=== PATIENT | female | born 1970 | race Caucasian/White ===

== ENCOUNTER → 2018-03-23 14:36 | Outpatient (CLI) | payer OTHER, SELFPAY ==
--- NOTE | 2018-03-23 11:30 | EMB_PTH ---
PATIENT: INGRID VIERA LOC: [facility] U#:[id number] AGE/SX: 54/F ROOM: RE03/23/[address]: Dr. Savage Anderson MD : 1970 BED: DIS: SPEC #: [id number] RECD: 03/23/18 14:11 STATUS: CYDNEY LUIS F #: [id number] VISHAL: 03/23/18 11:[address]: Savage Anderson DEPT: SURGICAL PATHOLOGY RECD BY: Renuka Walker ENTERED: 03/23/18 15:33 SP TYPE: ENDOM BX/C TAMAR DR: Dr. Bharati Fisher MD Tissues: Endometrium, NOS Procedures: Surgery Specimen Level IV HEADER OPERATION: Endometrial biopsy PRE-OP DIAGNOSIS: N93.9 TISSUE SUBMITTED: Endometrial biopsy MICROSCOPIC DIAGNOSIS Endometrium, biopsy: Mildly disordered proliferative endometrium. AM:rell 03/24/18 MICROSCOPIC DESCRIPTION Slides are reviewed. GROSS DESCRIPTION Received in fixative is one container labeled with the patient's name and designated EM biopsy. The specimen consists of multiple irregular fragments of pink-red soft tissue that in aggregate measure 3 x 2.5 x 0.2 cm. The entire specimen is submitted in one cassette. / SJ:rell 03/23/18 TC:5 CPT: 43043
[2018-03-31 10:01] LABS: HPV APTIMA, High Risk Negative (Negative); HPV Reflexed? YES, CHARGE PATIENT
== END ==
PROVIDERS: Visit Provider Obstetrics & Gynecology
DX: N89.8 Other specified noninflammatory disorders of vagina (principal); N93.9 Abnormal uterine and vaginal bleeding, unspecified; Z12.4 Encounter for screening for malignant neoplasm of cervix
CPT/HCPCS: 87624; 88175; 88305; G0145

== ENCOUNTER → 2019-06-07 15:01 | Outpatient (CLI) | payer OTHER, SELFPAY ==
[2019-06-15 16:52] LABS: HPV APTIMA, High Risk Negative (Negative); HPV Reflexed? YES, CHARGE PATIENT
== END ==
PROVIDERS: Referring Provider Obstetrics & Gynecology; Visit Provider Obstetrics & Gynecology
DX: Z12.4 Encounter for screening for malignant neoplasm of cervix (principal)
CPT/HCPCS: 87624; 88175; G0145

== ENCOUNTER 2020-05-30 10:41 | Emergency (ER) | payer OTHER, SELFPAY ==
[2020-05-30 10:42] VITALS: BP 151/87; PULSE 96; RESP 19; TEMP 36.5; O2SAT 96; BMI 37.9
--- NOTE | 2020-05-30 11:02 | CT_ITS ---
STUDY: CTA CHEST REASON FOR EXAM: Female, 49 years old. PE,CHEST PAIN, SOB ON EXCERTION, DVT RADIATION DOSAGE (If Supplied By Facility): CTDIvol = ( 12.48 ) mGy, DLP = ( 462.59 ) mGycm TECHNIQUE: The examination was performed with the intravenous administration of IV 100mL Isovue-370. Post-processing of the angiographic images was performed, with multiplanar reformation and 3D reconstruction. Individualized dose optimization techniques were used for this CT. COMPARISON: None. FINDINGS: Normal enhancement of the main pulmonary artery and right and left pulmonary arteries. Normal enhancement of the bilateral peripheral pulmonary arteries. There is no demonstrated pulmonary embolism. Normal thoracic aorta and visualized great vessels. There is no demonstrated aortic dissection. Normal heart and pericardium. Normal mediastinum. Normal hilar regions. Normal visualized trachea and bronchi. The lungs are well expanded. 51.8 cm x 1.4 cm irregular nodular density along the peripheral posterior aspect of the right upper lobe. An irregular nodular density measuring 1.2 cm x 1.1 cm is also seen along the lateral aspect of the posterior left upper lobe. This also evidence of a nondiscrete infiltrates in both lower lobes. Findings are suggestive of a patchy bilateral pulmonary infiltrates. Radiographic follow-up is recommended. Normal pleura. Normal chest wall structures. Normal osseous structures. Normal visualized upper abdomen. CT/CTA Chest W/WO Contrast IMPRESSION: There is no evidence of a pulmonary embolism. Patchy infiltrates in both lungs as described above. This most likely represents pneumonic in nature. Radiographic follow-up is recommended. Electronically Signed: Quang Garner, at 13:11 EDT , Service support ,
--- NOTE | 2020-05-30 11:03 | EKG12_ITS ---
Test Reason : Blood Pressure : / mmHG Vent. Rate : 083 BPM Atrial Rate : 083 BPM P-R Int : 156 ms QRS Dur : 080 ms QT Int : 370 ms P-R-T Axes : 024 032 009 degrees QTc Int : 434 ms Normal sinus rhythm Normal ECG Confirmed by SAI GR, TANYA ([id number]), editor at large ANGIE SY ([id number]) on 06/03/2020 11:13:01 AM Referred By: MILA Confirmed By:TANYA GIBBS MD
--- NOTE | 2020-05-30 11:25 | ED.VIS.GEN ---
History of Present Illness Informant: Patient Onset: Weeks Narrative: 49-year-old female past medical history of asthma presents with complaints of dyspnea on exertion and leg pain. At the beginning of May she was positive for Covid 19. She states her symptoms improved except she still has dyspnea on exertion since her diagnosis. On 05/26/2020 she was diagnosed with left lower extremity DVT and started on Xarelto. That night she started having worsening leg pain up into her left thigh which has been persistent. Over the last few days she has midsternal chest tightness when taking deep breaths. Her PCP sent her to the ED to get a CTA. Patient denies chest pain now. She states her dyspnea on exertion is no worse than it has been over the last several weeks but it concerned her that it is not gone. She no longer has a fever or cough. No leg swelling or discoloration. <Katerine Carney - Last Filed: 05/30/20 13:17> <Lenin Tee - Last Filed: 05/30/20 14:39> Chief Complaint: Shortness of Breath Past Medical History Past Medical History: - - asthma, DVT <Katerine Carney - Last Filed: 05/30/20 13:17> <Lenin Tee - Last Filed: 05/30/20 14:39> - Allergies and Home Meds Allergies/Adverse Reactions: Allergies No Known Allergies Allergy (Verified 05/30/20 10:41) Primary Care Physician: Skye Garcia DO [Primary Care Provider] - Review of Systems General: Denies: Chills, Fever, Sweats Eyes: Denies: Visual changes - bilaterally, Diplopia ENT: Denies: Rhinorrhea, Sore throat Cardiovascular: Denies: Chest pain, Palpitations Respiratory: Reports: Dyspnea on exertion. Denies: Dyspnea, Cough, Sputum, Orthopnea Gastrointestinal: Denies: Abdominal pain, Nausea, Vomiting, Diarrhea, Melena, Hematochezia Genitourinary: Denies: Dysuria, Hematuria, Frequency Musculoskeletal: Reports: Extremity Pain. Denies: Back pain Skin: Denies: Rash, Wounds Neurological: Denies: Headache, Weakness, Numbness <Katerine Carney - Last Filed: 05/30/20 13:17> Physical Exam Vital Signs/Narrative: Vital Signs Temp Pulse Resp BP Pulse Ox 05/30/20 10:42 97.7 F L 96 19 H 151/87 H 96 General: Well nourished, Well developed, No Acute Distress Head: Normocephalic, Atraumatic Eyes: Perrl, EOMI ENT: Moist mucous membranes, No rhinorrhea Neck: Supple, Nontender Cardiovascular: Regular rate, Regular rhythm, No murmurs Respiratory: No distress, CTA bilaterally, Chest nontender Back: Normal Inspection Extremities: No edema, Calf Tenderness, - - left calf tenderness in area of known DVT. No LE swelling. 2+ distal pulses Skin: Normal color, No rash Neurological: Alert, Oriented x3, Cranial nerves II-XII grossly intact Psychological: Normal affect, Normal Mood <Katerine Carney - Last Filed: 05/30/20 13:17> Vital Signs/Narrative: Vital Signs Temp Pulse Resp BP Pulse Ox 05/30/20 10:42 97.7 F L 96 19 H 151/87 H 96 <Lenin Tee - Last Filed: 05/30/20 14:39> Diagnostic/Tx/Re-eval Clinical Impression(s) from Imaging Studies Chest CTA 05/30/20 11:02 IMPRESSION: There is no evidence of a pulmonary embolism. Patchy infiltrates in both lungs as described above. This most likely represents pneumonic in nature. Radiographic follow-up is recommended. Electronically Signed: Quang Garner, at 13:11 EDT , Service support , Laboratory Data 05/30/20 05/30/20 11:25 11:25 WBC 6.5 RBC 3.96 L Hgb 13.1 Hct 38.4 MCV 97.0 MCH 33.1 H MCHC 34.1 RDW Std Deviation 46.7 H RDW Coeff of Ravinder 13.1 Plt Count 190 MPV 8.3 Immature Gran % (Auto) 0.300 Neut % (Auto) 72.4 H Lymph % (Auto) 19.0 [place] % (Auto) 7.3 Eos % (Auto) 0.8 Baso % (Auto) 0.2 Absolute Neuts (auto) 4.7 Absolute Lymphs (auto) 1.23 Nucleated RBC % 0 Sodium 139 Potassium 3.8 Chloride 106 Carbon Dioxide 25.0 Anion Gap 8 BUN 8 Creatinine 0.73 Estim Creat Clear Calc 90.65 Est GFR (MDRD) Af Amer 108 Est GFR (MDRD) Non-Af 89 BUN/Creatinine Ratio 10.9 Glucose 101 Calcium 9.2 Troponin I < 0.015 - Rhythm Strip Rhythm Strip: Sinus Rhythm Rate: 83 Ectopy: None - Medical Decision Making Patient presented with dyspnea on exertion x1 months after diagnosis of COVID and worsening LLE pain after being diagnosed with DVT 1 week ago. She appears well and nontoxic. She is resting comfortably in no respiratory distress. Vital signs within normal limits. Normal cardiopulmonary exam. LLE calf is tender with palpable cord over area of known DVT. Labs are unremarkable. Troponin negative. EKG is normal sinus rhythm with no signs of ischemia. CTA was negative for PE but did show patchy infiltrates. This is most likely post Covid pneumonia. She be treated with doxycycline and follow-up with PCP. Return for worsening shortness of breath. She was agreeable and discharged home in stable condition. <Katerine Carney - Last Filed: 05/30/20 13:17> - Medical Decision Making The pen history and physical was obtained. Patient has a DVT left lower extremity and is on Xarelto. She states she is compliant. She presents because of increased shortness of breath. She denies hemoptysis. She was diagnosed earlier this month with COVID-19. Patient is tachypneic. She is not febrile nor is she hypoxic. Lungs reveal some scattered rales bilaterally. Heart is regular. Lower extremity reveals swelling and slight discoloration of left lower extremity consistent with DVT. Appropriate blood work obtained and CTA to evaluate for pulmonary embolus. <Lenin Tee - Last Filed: 05/30/20 14:39> ED Disposition <Katerine Carney - Last Filed: 05/30/20 13:17> <Lenin Tee - Last Filed: 05/30/20 14:39> - Plan for ED Patient: Disposition: Home or Assisted Living Diagnosis: Pneumonia due to COVID-19 virus, Bilateral patchy infiltrates, Dyspnea, Dyspnea due to COVID-19 Instructions: ED Upper Resp Infec Abx Tx Prescriptions: Doxycycline 100 mg PO BID #20 cap Prescription Printed Referrals: Skye Garcia DO [Primary Care Provider] -
[2020-05-30 11:41] LABS: Absolute Lymphocyte Count 1.23 X10^3/uL (0.83-4.51); Absolute Neutrophil Count 4.7 X10^3/uL (2.0-7.7); Basophil# 0.01 X10^3/uL; Basophil% 0.2 % (0-1); Eosinophil# 0.05 X10^3/uL; Eosinophils% 0.8 % (0-5); Hematocrit 38.4 % (37-47); Hemoglobin 13.1 g/dL (12.0-15.0); Lymphocyte # 1.23 X10^3/ul (4.0); Mean Corp Hgb Conc 34.1 g/dL (32-36); Mean Corpuscular Hgb 33.1 pg (27.0-32.0); Mean Platelet Vol. 8.3 fl (6.2-12.0); Monocyte# 0.47 X10^3/uL; Monocyte% 7.3 % (0-10); NRBC Flagged by Analyzer 0 % (0-5); Neutrophil % 72.4 % (47-70); Platelet Count 190 K/mm3 (150-450); RBC Distribution Width CV 13.1 % (11.6-14.6); RBC Distribution Width SD 46.7 fl (35.1-43.9); Red Blood Count 3.96 M/mm3 (4.2-5.4); White Blood Count 6.5 K/mm3 (4.4-11.0)
[2020-05-30 11:57] LABS: Anion Gap 8 (5-15); BUN 8 mg/dL (7-18); BUN/Creat Ratio 10.9 RATIO (10-20); Calcium,Total 9.2 mg/dL (8.5-10.1); Chloride 106 mmol/L (98-107); Creatinine, Serum 0.73 mg/dL (0.55-1.02); EST Glomerular Filtration Rate 89 mL/min (>60); Est Glom Filt Rate - Afr Amer 108 mL/min (>60); Estimated Creatinine Clearance 90.65 ml/min; Glucose 101 mg/dL (74-106); Potassium 3.8 mmol/L (3.5-5.1); Sodium Level 139 mmol/L (136-145)
[2020-05-30] MEDS: Doxycycline 100 MG CAPSULE PO (13:37)
[2020-05-30 13:39] VITALS: BP 107/71; PULSE 91; RESP 16; O2SAT 97
== END 2020-05-30 14:27 | disposition home or self-care (01) ==
LOC: ED 13:40
PROVIDERS: Emergency Provider Physician Assistant; PCP Internal Medicine
DX: U07.1 COVID-19 (principal); J12.89 Other viral pneumonia; J45.909 Unspecified asthma, uncomplicated; Z86.718 Personal history of other venous thrombosis and embolism; Z79.01 Long term (current) use of anticoagulants
CPT/HCPCS: 71275; 80048; 84484; 85025; 93005; 99284; Q9967

== ENCOUNTER → 2020-07-11 07:54 | Outpatient (CLI) | payer OTHER, SELFPAY ==
--- NOTE | 2020-07-11 07:56 | VDLE_ITS ---
Reason For Study: F/U DVT RIGHT LEFT GSV is normal. CFV is compressible, spontaneous, phasic, CFV is compressible, spontaneous, phasic, competent, and demonstrates normal competent and demonstrates normal augmentation. augmentation. FV is compressible, spontaneous, phasic, FV is compressible, spontaneous, phasic, competent and demonstrates normal competent and demonstrates normal augmentation. augmentation. POP V is compressible, spontaneous, phasic, POP V is compressible, spontaneous, phasic, competent and demonstrates normal competent and demonstrates normal augmentation. augmentation. T/P Trunk is compressible. T/P Trunk is compressible. PTV is compressible. PTV is compressible. LT PerV is compressible. RT PerV is compressible. Lt SoleusV is partially compressible with no flow Lt GSV was ablated three years ago Lt GSV at junction is partially compressible with bright intraluminal echoes consistent with chronic SVT Lt thigh and calf varicosities are partially compressible with bright intraluminal echoes consistent with chronic SVT. Interpretation Summary Acute deep vein thrombosis is noted in the left soleus vein. The remainder of the left lower extremity deep venous system is patent and compressible. Deep veins of the right lower extremity are patent and compressible segmentally. There is no evidence of right lower extremity deep vein thrombosis. Valvular competence appears intact within the proximal deep venous systems bilaterally. The right great saphenous vein appears patent and compressible segmentally. The left great saphenous vein has been previously ablated, though chronic changes are noted near the left sapheno-femoral junction. Chronic venous changes are noted in superficial varicosities in the left thigh and calf. Ordering Physician: Skye Garcia Referring Physician: Skye Garcia Performed By: Lashay Freeman, SIS, RVT
== END ==
PROVIDERS: PCP Internal Medicine; Referring Provider Internal Medicine; Visit Provider Internal Medicine
DX: I82.409 Acute embolism and thrombosis of unspecified deep veins of unspecified lower extremity (principal)
CPT/HCPCS: 93970

== ENCOUNTER → 2020-11-21 08:56 | Outpatient (CLI) | payer SELFPAY ==
--- NOTE | 2020-11-21 09:08 | VDLE_ITS ---
Reason For Study: DVT RIGHT LEFT CFV is compressible, spontaneous, phasic, GSV is normal. competent and demonstrates normal CFV is compressible, spontaneous, phasic, augmentation. competent, and demonstrates normal Procedure augmentation. This is a venous duplex using B-mode, color FV is compressible, spontaneous, phasic, flow and spectral Doppler. competent and demonstrates normal The study was technically difficult. augmentation. Due to body habitus. POP V is compressible, spontaneous, phasic, A preliminary report was called and/or faxed competent and demonstrates normal to Dr. Garcia @ [phone] @ 9:20 am. augmentation. T/P Trunk is compressible. PTV is compressible. LT PerV is compressible. VL/Venous Duplex US, Unilateral Interpretation Summary Deep veins of the left lower extremity are patent and compressible segmentally. There is no evidence of left lower extremity deep vein thrombosis. Valvular competence appears intac t within the proximal deep venous system on the left . The left great saphenous vein appears patent a nd compressible segmentally. Ordering Physician: Skye Garcia Referring Physician: Skye Garcia Performed By: Maria Guadalupe Robles, COURTNEYCS, RVT
== END ==
PROVIDERS: PCP Internal Medicine; Referring Provider Internal Medicine; Visit Provider Internal Medicine
DX: I82.402 Acute embolism and thrombosis of unspecified deep veins of left lower extremity (principal)
CPT/HCPCS: 93971

== ENCOUNTER → 2021-07-23 | Outpatient (CLI) | payer SELFPAY ==
[2021-07-29 08:40] LABS: HPV Reflexed? NOT INDICATED
== END | disposition home or self-care (01) ==
LOC: LABSPEC 16:01
PROVIDERS: PCP Internal Medicine; Visit Provider Obstetrics & Gynecology
DX: Z12.4 Encounter for screening for malignant neoplasm of cervix (principal)
CPT/HCPCS: 88175; G0145

== ENCOUNTER → 2024-05-31 | Outpatient (CLI) | payer SELFPAY ==
[2024-05-31 18:01] LABS: Absolute Lymphocyte Count 2.08 X10^3/uL (0.83-4.51); Basophil# 0.03 X10^3/uL; Basophil% 0.5 % (0-1); Eosinophil# 0.08 X10^3/uL; Eosinophils% 1.2 % (0-5); Hematocrit 40.4 % (37-47); Lymphocyte # 2.08 X10^3/ul (0.83-4.51); Lymphocyte % 31.5 % (19-41); Mean Corp Hgb Conc 34.7 g/dL (32-36); Mean Corpuscular Hgb 34.7 pg (27.0-32.0); Mean Platelet Vol. 8.8 fl (6.2-12.0); Monocyte# 0.43 X10^3/uL; Monocyte% 6.5 % (0-10); NRBC Flagged by Analyzer 0 % (0-5); Neutrophil # 3.96 X10^3/uL (2.7-7.7); Platelet Count 160 K/mm3 (150-450); RBC Distribution Width CV 11.9 % (11.6-14.6); RBC Distribution Width SD 43.5 fl (35.1-43.9); Red Blood Count 4.04 M/mm3 (4.2-5.4); White Blood Count 6.6 K/mm3 (4.4-11.0)
[2024-05-31 18:12] LABS: ALB/GLOB Ratio 1.3 RATIO (0.9-2.4); AST(SGOT) 34 U/L (15-37); Alanine Aminotransfer ALT/SGPT 45 U/L (13-56); Albumin, Serum 4.2 g/dL (3.2-5.0); Alkaline Phosphatase 91 U/L (45-117); Amylase 21 U/L (25-115); Anion Gap 7 (5-15); BUN 12 mg/dL (7-18); BUN/Creat Ratio 14.6 RATIO (10-20); Calcium,Total 9.4 mg/dL (8.5-10.1); Chloride 105 mmol/L (98-107); Creatinine, Serum 0.82 mg/dL (0.55-1.02); EST Glomerular Filtration Rate 77 mL/min (>60); Est Glom Filt Rate - Afr Amer 93 mL/min (>60); Globulin 3.2 g/dL (2.2-4.2); Glucose 105 mg/dL (74-106); Lipase 30 U/L (13-75); Potassium 3.8 mmol/L (3.5-5.1); Protein, Total 7.4 g/dL (6.4-8.2); Sodium Level 140 mmol/L (136-145)
[2024-05-31 18:15] LABS: Erythrocyte Sedimentation Rate 5 mm/hr (0-30)
== END | disposition home or self-care (01) ==
PROVIDERS: PCP Internal Medicine; Referring Provider Internal Medicine; Visit Provider Internal Medicine
DX: R10.13 Epigastric pain (principal)
CPT/HCPCS: 36415; 80053; 82150; 83690; 85025; 85652; 86140

== ENCOUNTER 2024-06-19 13:14 | Emergency (ER) | payer OTHER, SELFPAY ==
[2024-06-19 13:15] VITALS: BP 160/94; PULSE 87; RESP 16; TEMP 36.1; O2SAT 98; BMI 38.8
--- NOTE | 2024-06-19 14:10 | US_ITS ---
STUDY: ULTRASOUND GALLBLADDER REASON FOR VISIT: Female, 53 years old. Pain TECHNIQUE: Ultrasound evaluation of the gallbladder was performed with real-time and static rowe-scale imaging. TECHNICAL QUALITY: Limited. Examination limited due to a combination of factors including obesity and bowel gas. COMPARISON: None. FINDINGS: Gallbladder: There is a markedly distended gallbladder. The gallbladder wall measures 2 mm. There is a negative sonographic Iraheta''s sign. There is no pericholecystic fluid. There are multiple echogenic structures within the gallbladder, consistent with multiple gallstones. Common Bile Duct (C.B.D.): The common bile duct measures 4 mm. US/Gallbladder IMPRESSION: Cholelithiasis. Negative Iraheta''s sign. No wall thickening. Electronically Signed: Smith Rodriguez MD at 16:56 EST ,
--- NOTE | 2024-06-19 14:10 | EKG12_ITS ---
Test Reason : Blood Pressure : */* mmHG Vent. Rate : 74 BPM Atrial Rate : 74 BPM P-R Int : 166 ms QRS Dur : 82 ms QT Int : 410 ms P-R-T Axes : 24 28 30 degrees QTcB Int : 455 ms Sinus rhythm with frequent Premature ventricular complexes Otherwise normal ECG Confirmed by SAI GR, TANYA ([id number]), brands editor SILVER ANDERSON ([id number]) on 06/20/2024 8:16:56 AM Referred By: Confirmed By: TANYA GIBBS MD
[2024-06-19 14:18] LABS: Absolute Lymphocyte Count 1.79 X10^3/uL (0.83-4.51); Basophil# 0.02 X10^3/uL; Basophil% 0.4 % (0-1); Eosinophil# 0.13 X10^3/uL; Eosinophils% 2.4 % (0-5); Hematocrit 42.6 % (37-47); Hemoglobin 15.1 g/dL (12.0-15.0); Lymphocyte # 1.79 X10^3/ul (0.83-4.51); Lymphocyte % 33.6 % (19-41); Mean Corp Hgb Conc 35.4 g/dL (32-36); Mean Corpuscular Volume 98.6 fL (81-99); Mean Platelet Vol. 9.3 fl (6.2-12.0); Monocyte# 0.36 X10^3/uL; Monocyte% 6.8 % (0-10); NRBC Flagged by Analyzer 0 % (0-5); Neutrophil % 56.4 % (47-70); Platelet Count 150 K/mm3 (150-450); RBC Distribution Width SD 43.7 fl (35.1-43.9); Red Blood Count 4.32 M/mm3 (4.2-5.4); White Blood Count 5.3 K/mm3 (4.4-11.0)
--- NOTE | 2024-06-19 14:20 | EDS_ITS ---
HPI History of Present Illness Chief Complaint: Abd Pain Narrative Narrative: Patient is a 53-year-old female with past medical history of asthma, blood clots who presents to the emergency department with a chief complaint of abdominal pain. Patient states that she is scheduled to have her gallbladder removed towards the end of this month in [place]. Said that she has had worsening pain starting on Tuesday she called her surgeon and they were unable to move her surgery up. She was told that if her pain worsens to go to the local emergency department which prompted her to come here for further evaluation management. [facility] Medical History History of blood clots Asthma Abscess of back Home Medications ?Medication ?Instructions ?Recorded ?Last Taken ?Type albuterol 90 mcg-budesonide 80 2 inh inhalation .prn 09/26/23 Unknown History mcg/actuation HFA aerosol inhaler dicyclomine 10 mg capsule 10 mg PO TID #30 caps 06/19/24 Unknown Rx omeprazole 40 mg capsule,delayed 40 mg PO DAILY 06/19/24 Unknown History release ondansetron 4 mg disintegrating 4 mg PO Q6H PRN nausea and 06/19/24 Unknown Rx tablet vomiting #20 tabs oxycodone-acetaminophen 5 mg-325 1 tab PO Q6H PRN pain 3 days #12 06/19/24 Unknown Rx mg tablet (Percocet) tabs Allergy/AdvReac Type Severity Reaction Status Date / Time No Known Allergies Allergy Verified 06/19/24 13:15 Family History Father Cancer Mother Cancer Osteoporosis Sister Hypertension Osteoporosis Surgical History History of excision of pilonidal cyst Social History Smoking Status: Never smoker alcohol intake: never substance use type: does not use ROS ROS ED ROS Narrative Constitutional: Denies any fevers, chills, headaches, lightness, dizziness Cardiovascular: Denies chest pain or palpitations Respiratory: Denies coughing wheezing shortness of breath Abdomen: Complains of abdominal pain as noted above and nausea denies vomiting or diarrhea : Denies any urinary symptoms Neurological: Denies numbness, weakness, tingling Musculoskeletal: Denies back pain Skin: Denies rashes or lesions EXAM Physical Exam Narrative Exam Narrative: General: Patient lying in bed rest comfortably did not appear to be in acute distress Head: Atraumatic, normocephalic Eyes: PERRL bilaterally, EOMI bilateral, no conjunctival injection noted Neck: Soft, supple, trach midline Cardiovascular: Regular rate and rhythm no murmurs gallops rubs noted Respiratory: Clear to auscultation bilaterally no rales rhonchi or wheezes noted Abdomen: Soft, nondistended, tenderness palpation the right upper quadrant positive Iraheta sign on exam, no rebound or guarding on exam Extremities: +5/5 strength noted in the bilateral upper and lower extremities, no pedal edema on exam, radial pulses +2/4 in the bilateral upper extremities Neurological: Patient following commands knew that she was at [facility] years 2023 Skin: Warm, dry, intact Const Vital Signs: 06/19/24 13:15 06/19/24 15:15 06/19/24 17:00 Temperature 96.9 F L Temperature Source Temporal Pulse Rate 87 69 65 Respiratory Rate 16 16 Blood Pressure 160/94 H 125/71 H 117/73 Blood Pressure Mean 116 89 87 Pulse Ox 98 98 Oxygen Delivery Method Room Air Room Air MDM MDM MDM Narrative Medical decision making narrative: patient is a 53-year-old female who presents to the emerged part with a chief complaint of right upper quadrant abdominal pain. Patient will have a workup performed here on the differential diagnose includes Melamin to cholecystitis, choledocholithiasis, pancreatitis. Once workup is obtained reviewed she will be reevaluated. Patient be given morphine Zofran. Patient's CBC reviewed and showed no evidence leukocytosis white blood count normal 5.3, hemoglobin 15.1, platelet count normal at 150. Patient sodium normal at 139, potassium normal 3.5, creatinine normal at 0.84. Patient's AST and ALT were normal at 30 and 45 respectively, total bilirubin normal at 0.90. Patient's urinalysis showed 500 leukocyte esterase 5-10 squamous epithelial cells with 25-50 white blood cells 2+ bacteria this will be sent for culture she does not have a urinary symptoms at this point time she was advised to follow-up on this with her primary care physician. Patient's ultrasound of her gallbladder was reviewed and showed cholelithiasis negative Iraheta sign no wall thickening noted. I did discuss results with the patient and she would like a second opinion and for me to discuss case with the on-call general surgeon here. I called and discussed case with Dr. Taylor who states that she does not need her gallbladder out at this point time and she should follow-up with the surgeon adult pop Cruz who is scheduled her to have her gallbladder removed on the of this month. I did advise her to return for a fever of 100.4 or greater persistent vomiting not keep anything down. She is requesting some pain medication which this will be sent to the pharmacy as well as nausea medication. She was encouraged to also follow-up with her primary care physician outpatient setting. She is agreeable with this plan as well as her significant other at bedside. All question concerns answered she is discharged home in stable condition. Lab Data Labs: Laboratory Results - last 24 hr 06/19/24 06/19/24 13:27 15:25 WBC 5.3 RBC 4.32 Hgb 15.1 H Hct 42.6 MCV 98.6 MCH 35.0 H MCHC 35.4 RDW Std Deviation 43.7 RDW Coeff of Ravinder 12.0 Plt Count 150 MPV 9.3 Immature Gran % (Auto) 0.400 Neut % (Auto) 56.4 Lymph % (Auto) 33.6 [place] % (Auto) 6.8 Eos % (Auto) 2.4 Baso % (Auto) 0.4 Absolute Neuts (auto) 3.0 Absolute Lymphs (auto) 1.79 Nucleated RBC % 0 Sodium 139 Potassium 3.5 Chloride 106 Carbon Dioxide 26.0 Anion Gap 7 BUN 6 L Creatinine 0.84 Estim Creat Clear Calc 100.17 Est GFR (MDRD) Af Amer 92 Est GFR (MDRD) Non-Af 76 BUN/Creatinine Ratio 7.2 L Glucose 107 H Calcium 9.7 Total Bilirubin 0.90 AST 30 ALT 45 Alkaline Phosphatase 93 Total Protein 7.7 Albumin 4.4 Globulin 3.3 Albumin/Globulin Ratio 1.3 Lipase 34 Urine Color Yellow Urine Clarity Clear Urine pH 6.0 Ur Specific Hollis 1.015 Urine Protein Negative Urine Glucose (UA) Normal Urine Ketones 15 H Urine Occult Blood 10 H Urine Nitrite Negative Urine Bilirubin Negative Urine Urobilinogen Normal Ur Leukocyte Esterase 500 H Urine RBC 0-5 SEEN Urine WBC 25-50 SEEN Ur Squamous Epith Cells 5-10 SEEN Ur Renal Epithelial Cell 5-10 SEEN Urine Bacteria 2+ Urine Mucus 0 SEEN Radiography Diagnostic Testing: Clinical Impression(s) from Imaging Studies Gallbladder Ultrasound 06/19/24 14:10 IMPRESSION: Cholelithiasis. Negative Iraheta''s sign. No wall thickening. Electronically Signed: Smith Rodriguez MD at 16:56 EST , Discharge Plan Triage Chief Complaint: Abd Pain ED Provider: Mat Zambrano Dx/Rx/DC Orders Clinical Impression: Abdominal pain, Cholelithiasis Prescriptions: New ondansetron 4 mg tablet,disintegrating 4 mg PO Q6H PRN (Reason: nausea and vomiting) Qty: 20 0RF oxycodone-acetaminophen [Percocet] 5-325 mg tablet 1 tab PO Q6H PRN (Reason: pain) 3 Days Qty: 12 0RF dicyclomine 10 mg capsule 10 mg PO TID Qty: 30 0RF No Action albuterol-budesonide 90-80 mcg/actuation HFA aerosol inhaler 2 inh inhalation .prn Rx Instructions: as a single dose; may repeat up to 6 doses per day (12 inhalations) omeprazole 40 mg capsule,delayed release(DR/EC) 40 mg PO DAILY Primary Care Provider: Skye Garcia Referrals: Skye Garcia DO [Primary Care Provider] - Activity Restrictions/Additional Instructions: Follow-up with your primary care physician on your urine culture results to ensure that you do not have a urinary tract infection. Take prescriptions as prescribed do not operate anything under the influence of these medications. Follow-up with your surgeon for your scheduled surgery. Return with fevers of 100.4 or greater, persistent vomiting not tolerating oral intake or any other concerns. Stick with a bland diet avoid fatty greasy foods Print Language: Kinyarwanda Disposition Disposition: Home, Self Care
[2024-06-19] MEDS: Morphine 4 MG/ML Syringe IV (14:26)
[2024-06-19] MEDS: Ondansetron 4 MG/2 ML Vial IV (14:26)
[2024-06-19 14:37] LABS: ALB/GLOB Ratio 1.3 RATIO (0.9-2.4); AST(SGOT) 30 U/L (15-37); Alanine Aminotransfer ALT/SGPT 45 U/L (13-56); Albumin, Serum 4.4 g/dL (3.2-5.0); Alkaline Phosphatase 93 U/L (45-117); Anion Gap 7 (5-15); BUN 6 mg/dL (7-18); BUN/Creat Ratio 7.2 RATIO (10-20); Calcium,Total 9.7 mg/dL (8.5-10.1); Chloride 106 mmol/L (98-107); Creatinine, Serum 0.84 mg/dL (0.55-1.02); EST Glomerular Filtration Rate 76 mL/min (>60); Est Glom Filt Rate - Afr Amer 92 mL/min (>60); Estimated Creatinine Clearance 100.17 ml/min; Globulin 3.3 g/dL (2.2-4.2); Glucose 107 mg/dL (74-106); Lipase 34 U/L (13-75); Potassium 3.5 mmol/L (3.5-5.1); Protein, Total 7.7 g/dL (6.4-8.2); Sodium Level 139 mmol/L (136-145)
[2024-06-19 15:15] VITALS: BP 125/71; PULSE 69
[2024-06-19 15:29] LABS: Mucous, Urine 0 SEEN /hpf (<or=2+)
[2024-06-19 15:39] LABS: Color, Urine Yellow (Yellow); Glucose, Dipstick Normal (Normal); Ketone-Dipstick 15 mg/dl (Negative); Leukocyte Esterase-Dipstick 500 /ul (Negative); Nitrite-Dipstick Negative (Negative); Occult Blood-Urine 10 /ul (Negative); Protein-Dipstick Negative (Negative); Specific Gravity, Urine 1.015 (1.002-1.030); Urine Bilirubin Dipstick Negative (Negative); Urine Clarity Clear (Clear); Urine Urobilinogen Normal (Normal)
[2024-06-19 16:55] LABS: Bacteria 2+ /hpf (None Seen); Renal Epithelial Cells 5-10 SEEN /hpf (0-5); Squamous Epithelial Cells - UA 5-10 SEEN /hpf (5-10); White Blood Cells 25-50 SEEN /hpf (0-5)
[2024-06-19 16:56] LABS: Red Blood Cells-Urine 0-5 SEEN /hpf (0-5)
[2024-06-19 17:00] VITALS: BP 117/73; PULSE 65; RESP 16; O2SAT 98
[2024-06-19] MEDS: HYDROcodone Bitartrate/Apap 5/325 Tablet PO (17:49)
[2024-06-19 18:31] VITALS: BP 134/61; PULSE 86; RESP 16; TEMP 36.6; O2SAT 99
== END 2024-06-19 18:37 | disposition home or self-care (01) ==
PROVIDERS: Emergency Provider Emergency Medicine; PCP Internal Medicine; Visit Provider Emergency Medicine
DX: R10.9 Unspecified abdominal pain (principal); K80.20 Calculus of gallbladder without cholecystitis without obstruction
CPT/HCPCS: 76705; 80053; 81001; 83690; 85025; 87086; 87088; 93005; 96374; 96375; 99283; A4216; J2405

== ENCOUNTER → 2025-07-15 | Outpatient (CLI) | payer OTHER, SELFPAY | END | disposition home or self-care (01) | PROVIDERS: PCP Internal Medicine; Referring Provider Physician Assistant; Visit Provider Physician Assistant | DX: L02.212 Cutaneous abscess of back [any part, except buttock and flank] (principal) | CPT/HCPCS: 87070; 87075; 87077; 87205 ==

== ENCOUNTER → 2025-07-18 | Outpatient (CLI) | payer SELFPAY, OTHER ==
--- NOTE | 2025-07-18 10:47 | VDLE_ITS ---
Reason For Study Reason For Study: F/U on known clots RIGHT LEFT GSV is normal. CFV is compressible, spontaneous, phasic, competent, CFV is compressible, spontaneous, phasic, competent and demonstrates normal augmentation. and demonstrates normal augmentation. FV is compressible, spontaneous, phasic, competent FV is compressible, spontaneous, phasic, competent and demonstrates normal augmentation. and demonstrates normal augmentation. POP V is compressible, spontaneous, phasic, competent POP V is compressible, spontaneous, phasic, competent and demonstrates normal augmentation. and demonstrates normal augmentation. T/P Trunk is compressible. T/P Trunk is compressible. PTV is compressible. PTV is compressible. LT PerV is compressible. RT PerV is compressible. GSV is absent. Procedure Varicose veins throughout leg are partially This is a venous duplex using B-mode, color flow and compressible with bright intraluminal echoes spectral Doppler. consistent with chronic SVT. Exam performed in department. No recent previous exam to compare to. VL/Venous Duplex US - Laith Extrem Interpretation Summary Deep veins of the bilateral lower extremities are patent and compressible segme ntally. There is no evidence of bilateral lower extremity deep vein thrombosis. The right great saphenous vein appears pa tent and compressible segmentally. Chronic post thrombotic changes noted in left lower extremity varicose veins. Ordering Physician: Skye Garcia Referring Physician: Skye Garcia Performed By: Mary Muniz RVT
--- OUTSIDE RECORDS SUMMARY | 2025-07-18 12:37 | XMS RPT_ITS | CCD ---
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 PELVIC ORGANS: Tubal ligation clips are present. No visible mass. Pelvic organs appropriate for patient age. BONES: Normal. No bony lesion or fracture. LUNG BASES: Normal. No visible pulmonary or pleural disease. OTHER: Negative. Continued Report - Page 2 of 2 Patient: INGRID VIERA Phone#: : 1970 Age: 54 Gender: F Pt. Type: Out Account: [id number] Location: 052 Ordering: KALEY HERNANDEZ Exam Date: 08/09/2024/17:27 Family Phys: Charge Code: [id number] Physician: Rock Order #: [id number] Dose#: 40.4 mGy CONCLUSION: 1. There is no evidence of acute abdominal or pelvic abnormality. Dictated by: Pool Amaro MD on 08/09/2024 at 17:58 Approved by: Pool Amaro MD on 08/09/2024 at 18:04 Normal [facility] LIPASEon 08-09-2024 Lipase [Catalytic activity/Vol] 44.0 U/L Normal 15.0 - 78.0 [facility] Comment on above: Result Comment: *PLE ASE NOTE THAT RANGES FOR LIPASE HAVE CHANGED OF 07/29/23 DUE TO AN ASSAY UPDATE BY THE SAMPLE CASE PORTER.THE NEW ASSAY RANGE IS 6-250 U/L, WITH A REFERENCE RANGE OF 16-77 U/L. Performed By: #### 2 [id number] #### [facility],[address] [place] [address] CV VENOUS BILATERAL LOWERon 07-31-2024 CV VENOUS BILATERAL LOWER [place] [address] Patient: INGRID VIERA Phone#: : 1970 Age: 54 Gender: F Pt. Type: Out Account: [id number] Location: [facility] Ordering: SKYE POON Exam Date: 07/31/2024/9:02 Family Phys: Charge Code: [id number] Physician: Rock Order #: [id number] Dose#: PROCEDURE: VENOUS DOPPLER BILAT LEG COMPARISON: [facility], , VENOUS DOPPLER BILAT LEG, 07/03/2024, 13:57. INDICATIONS: pain, swelling, FOLLOW UP SVT TECHNIQUE: Color duplex Doppler ultrasound evaluation analysis was performed in the usual manner. BOTTOM TURNER: BOB VIERA T [facility] RISK FACTORS FOR VENOUS DISEASE: Previous DVT or SVT EXAMINATION: RIGHT +Present -Reduced o Absent LEFT SPONT PHASIC AUG REFLUX COMP SPONT PHASIC AUG REFLUX COMP + + + o + CFV + + + o + + SFJ + + + + o + FV (prox) + + + o + + FV (mid) + + FV (dist) + + + + o + POP V + + + o + + + + o + T/P TRUNK + + + o + + + + o + PTV + + + o + + + + o + PERONEAL V + + + o + + GSV o GASTROC SOLEAL V BOTTOM TURNER'S NOTES: Left GSV is dilated and noncompressible. Starts mid thigh area. FINDINGS: THROMBI: Low-level echogenic material is present in the left greater saphenous vein. Remaining superficial and deep veins are patent. Continued Report - Page 2 of 2 Patient: INGRID VIERA Phone#: : 1970 Age: 54 Gender: F Pt. Type: Out Account: [id number] Location: 052 Ordering: SKYE POON Exam Date: 07/31/2024/9:02 Family Phys: Charge Code: [id number] Physician: Rock Order #: [id number] Dose#: COMPRESSIBILITY: The left greater saphenous vein is noncompressible from the mid thigh level distally. OTHER: Negative. CONCLUSION: 1. Findings consistent with superficial vein thrombus involving the left greater saphenous vein without significant change since prior exam. 2. Remaining superficial and deep veins are patent. Dictated by: Pool Amaro MD on 07/31/2024 at 10:10 Approved by: Pool Amaro MD on 07/31/2024 at 10:15 Normal [facility] CV VENOUS BILATERAL [facility] 07-03-2024 CV VENOUS BILATERAL [place] [address] Patient: INGRID VIERA Phone#: : 1970 Age: 53 Gender: F Pt. Type: Out Account: [id number] Location: 052 Ordering: KALEY HERNANDEZ Exam Date: 07/03/2024/13:57 Family Phys: Charge Code: [id number] Physician: Rock Order #: [id number] Dose#: PROCEDURE: VENOUS DOPPLER BILAT LEG COMPARISON: None. INDICATIONS: PAIN, SWELLING, s/p surgery TECHNIQUE: Color duplex Doppler ultrasound evaluation analysis was performed in the usual manner. BOTTOM TURNER: BOB VIERA [facility] RISK FACTORS FOR VENOUS DISEASE: Previous DVT or SVT Recent surgery S/P LAP MARGA EXAMINATION: RIGHT +Present -Reduced o Absent LEFT SPONT PHASIC AUG REFLUX COMP SPONT PHASIC AUG REFLUX COMP + + + o + CFV + + + o + + SFJ + + + + o + FV (prox) + + + o + + FV (mid) + + FV (dist) + + + + o + POP V + + + o + + + + o + T/P TRUNK + + + o + + + + o + PTV + + + o + + + + o + PERONEAL V + + + o + + GSV o GASTROC SOLEAL V BOTTOM TURNER'S NOTES: FINDINGS: Continued Report - Page 2 of 2 Patient: INGRID VIERA Phone#: : 1970 Age: 53 Gender: F Pt. Type: Out Account: [id number] Location: 052 Ordering: KALEY HERNANDEZ Exam Date: 07/03/2024/13:57 Family Phys: Charge Code: 161076 Physician: Rock Order #: [id number] Dose#: THROMBI: Deep veins are compressible. Left greater saphenous vein contains echogenic thrombus. COMPRESSIBILITY: Deep veins are compressible. Left greater saphenous vein is noncompressible. OTHER: Negative. CONCLUSION: 1. No deep vein thrombi 2. Superficial vein thrombus in the left greater saphenous vein. Dictated by: Whit Green MD on 07/03/2024 at 15:00 Approved by: Whit Green MD on 07/03/2024 at 15:06 Normal [facility] Final Surgical Pathology Rep [facility] 07-03-2024 Final Surgical Pathology Report . Pathology Reports Accession: Collected Date/Time: Received Date/Time: Pathologist: [id number] 06/27/2024 14:59 EST 07/02/2024 08:02 EST RUDY VENTURA MD Final Surgical Pathology Report DIAGNOSIS: GALLBLADDER: - MUCOSAL NECROSIS AND CHOLELITHIASIS, WITH MINIMAL INFLAMMATION COMMENT: [facility]#[id number] CLINICAL INFORMATION: BILIARY COLIC SPECIMEN: A GALLBLADDER GROSS DESCRIPTION: All parts labelled with patient name and [id number] Received in formalin labelled gallbladder Dimensions - 7.9 x 4.4 x 1.4 cm Cystic duct/pericystic duct lymph node - no lymph node identified Serosal surface - is slimy and mahoney-green with a roughened hepatic bed and attached yellow adipose tissue Luminal contents - contains dark green bile and multiple dark brown stones ranging in size from 0.3 to 0.5 cm. Mucosal surface - is velvety dark green with yellow flecks Wall thickness - 0.1 to 0.3 cm RS-1 Fina Berkowitz, [employer] Equipment Installer/ Dr. Rudy Ventura, Pathologist Performed by Fina Berkowitz MICROSCOPIC DESCRIPTION: The microscopic examination is performed, except in the case of Gross Only. Electronically Signed by Pathology Report verified by [facility] RUDY VENTURA Sign out Date: 07/03/2024 12:48 Performing Lab: [facility], [address] [place] [address] Pathology Dept Disclaimer If ancillary studies were utilized, the following Laboratory Developed Test (LDT) disclaimer will apply: Under CLIA requirements, [facility] Pathology Laboratory is qualified to perform high complexity testing. For all ancillary stains, positive and negative controls stain appropriately. Performance characteristics of immunohistochemical and chromogenic in-situ hybridization tests have been determined by [facility] Pathology Laboratory. These tests are used for clinical purposes, They should not be regarded as investigational or for research. Normal [facility] Urine Cultureon 06-21-2024 U[facility] Mixed Gram Positive Organisms [place] Count 11,000-25,000 MIXC Mixed contaminants. Submit a new specimen if indicated. Normal [facility] Comment on above: Performed By: #### M 100.2200 #### [facility] Laboratory [address] [facility] [place], [address] 12 Lead EKGon 06-19-2024 12 Lead EKG [facility] Cardiovascular Services [address] [place] [address] 12 Lead EKG 06/19/24 1453 MR#: [id number] Acct: [id number] Name: INGRID VIERA Cira Rep #: [id number] : 1970 53 From: River Dior MD Attending Dr: Status: DEP ER Ordering Dr: Mat Zambrano DO Date: 06/19/24 Location: ED Sex: F C Admitted: Test Reason : Blood Pressure : */* mmHG Vent. Rate : 74 BPM Atrial Rate : 74 BPM P-R Int : 166 ms QRS Dur : 82 ms QT Int : 410 ms P-R-T Axes : 24 28 30 degrees QTcB Int : 455 ms Sinus rhythm with frequent Premature ventricular complexes Otherwise normal ECG Confirmed by RIVER DIOR MD ([id number]), technical writer and editor SILVER ANDERSON ([id number]) on 06/20/2024 8:16:56 AM Referred By: Confirmed By: RIVER DIOR MD 06/20/24 0816 Date River Dior MD CC: Dr. Skye Poon, ; Dr. Mat Zambrano DO Signed Normal [facility] CBC W/Diff, Automatedon 06-01 Absolute Lymph 1.79 X10 3/uL Normal 0.83-4.51 [facility] Comment on above: Performed By: #### L 500.4050, L100.0100, L501.2450 ####[facility] [address] [place], [address] Absolute Neut 3.0 X10 3/uL Normal 2.0-7.7 [facility] Comment on above: Performed By: #### L 500.4050, L100.0100, L501.2450 ####[facility] [address] [place], [address] Basophils/100 WBC (Bld) 0.4 % Normal 0-1 [facility] Comment on above: Performed By: #### L 500.4050, L100.0100, L501.2450 ####[facility] [address] [place], [address] Eosinophils/100 WBC (Bld) 2.4 % Normal 0-5 [facility] Comment on above: Performed By: #### L 500.4050, L100.0100, L501.2450 ####[facility] [address] [place], [address] Erythrocyte distribution width (RBC) [Ratio] 12.0 % Normal 11.6-14.6 [facility] Comment on above: Performed By: #### L 500.4050, L100.0100, L501.2450 ####[facility] [address] [place], [address] Hematocrit (Bld) [Volume fraction] 42.6 % Normal 37-[address] [facility] Comment on above: Performed By: #### L 500.4050, L100.0100, L501.2450 ####[facility] [address] [place], [address] Hemoglobin (Bld) [Mass/Vol] 15.1 g/dL High 12.0-15.0 [facility] Comment on above: Performed By: #### L 500.4050, L100.0100, L501.2450 ####[facility] [address] [place], [address] IG% 0.400 Normal 0.0-0.[address] [facility] Comment on above: Result Comment: IG% - Immature Granulocytes (promyelocytes, myelocytes and metamyelocytes) > 1% indicates that a LEFT SHIFT is Present. Performed By: #### L 500.4050, L100.0100, L501.2450 ####[facility] [address] [place], [address] Lymphocytes/100 WBC (Bld) 33.6 % Normal 19-41 [facility] Comment on above: Performed By: #### L 500.4050, L100.0100, L501.2450 ####[facility] [address] [place], [address] MCH (RBC) [Entitic mass] 35.0 pg High 27.0-32.0 [facility] Comment on above: Performed By: #### L 500.4050, L100.0100, L501.2450 ####[facility] [address] [place], [address] MCHC (RBC) [Mass/Vol] 35.4 g/dL Normal 32-36 [facility] Comment on above: Performed By: #### L 500.4050, L100.0100, L501.2450 ####[facility] [address] [place], [address] MCV (RBC) [Entitic vol] 98.6 fL Normal 81-99 [facility] Comment on above: Performed By: #### L 500.4050, L100.0100, L501.2450 ####[facility] [address] [place], [address] Monocytes/100 WBC (Bld) 6.8 % Normal 0-10 [facility] Comment on above: Performed By: #### L 500.4050, L100.0100, L501.2450 ####[facility] [address] [place], [address] Neutrophils/100 WBC (Bld) 56.4 % Normal 47-70 [facility] Comment on above: Performed By: #### L 500.4050, L100.0100, L501.2450 ####[facility] [address] [place], [address] Nucleated RBC (Bld) [#/Vol] 0 10*3/uL Normal 0-5 [facility] Comment on above: Performed By: #### L 500.4050, L100.0100, L501.2450 ####[facility] [address] [place], [address] Platelet mean volume (Bld) [Entitic vol] 9.3 fL Normal 6.2-12.0 [facility] Comment on above: Performed By: #### L 500.4050, L100.0100, L501.2450 ####[facility] [address] [place], [address] Platelets (Bld) [#/Vol] 150 10*3/uL Normal 150-450 [facility] Comment on above: Performed By: #### L 500.4050, L100.0100, L501.2450 ####[facility] [address] [place], [address] RBC (Bld) [#/Vol] 4.32 10*6/uL Normal 4.2-5.4 [facility] Comment on above: Performed By: #### L 500.4050, L100.0100, L501.2450 ####[facility] [address] [place], [address] RDW SD 43.7 fl Normal 35.1-43.[address] [facility] Comment on above: Performed By: #### L 500.4050, L100.0100, L501.2450 ####[facility] [address] [place], [address] WBC (Bld) [#/Vol] 5.3 10*3/uL Normal 4.4-11.0 [facility] Comment on above: Performed By: #### L 500.4050, L100.0100, L501.2450 ####[facility] [address] [place], [address] [facility] Albumin [Mass/Vol] 4.4 g/dL Normal 3.2-5.0 [facility] Comment on above: Performed By: #### L 500.4050, L100.0100, L501.2450 ####[facility] [address] [place], [address] Albumin/Globulin [Mass ratio] 1.3 {ratio} Normal 0.9-2.4 [facility] Comment on above: Performed By: #### L 500.4050, L100.0100, L501.2450 ####[facility] [address] [place], [address] ALK P 93 U/L Normal 45-[address] [facility] Comment on above: Performed By: #### L 500.4050, L100.0100, L501.2450 ####[facility] [address] [place], [address] ALT [Catalytic activity/Vol] 45 U/L Normal 13-56 [facility] Comment on above: Performed By: #### L 500.4050, L100.0100, L501.2450 ####[facility] [address] [place], [address] AST [Catalytic activity/Vol] 30 U/L Normal 15-37 [facility] Comment on above: Performed By: #### L 500.4050, L100.0100, L501.2450 ####[facility] [address] [place], [address] Bilirubin [Mass/Vol] 0.90 mg/dL Normal 0.20-1.00 [facility] Comment on above: Result Comment: For patients on eltrombopag therapy, use of Dimension [place] TBIL is not recommended. Performed By: #### L 500.4050, L100.0100, L501.2450 ####[facility] [address] [place], [address] BUN/CRE 7.2 RATIO Low 10-[address] [facility] Comment on above: Performed By: #### L 500.4050, L100.0100, L501.2450 ####[facility] [address] [place], [address] CA,Total 9.7 mg/dL Normal 8.5-10.[address] [facility] Comment on above: Performed By: #### L 500.4050, L100.0100, L501.2450 ####[facility] [address] [place], [address] Chloride [Moles/Vol] 106 mmol/L Normal 98-107 [facility] Comment on above: Performed By: #### L 500.4050, L100.0100, L501.2450 ####[facility] [address] [place], [address] CO2 [Moles/Vol] 26.0 mmol/L Normal 21.0-32.0 [facility] Comment on above: Performed By: #### L 500.4050, L100.0100, L501.2450 ####[facility] [address] [place], [address] Creatinine [Mass/Vol] 0.84 mg/dL Normal 0.55-1.02 [facility] Comment on above: Result Comment: The validity of the calculated GFR GFRAA in patients over 70 years has not been determined. Clinical correlation is essential. Performed By: #### L 500.4050, L100.0100, L501.2450 ####[facility] [address] [place], [address] ECRCL 100.17 ml/min Normal [facility] Comment on above: Performed By: #### L 500.4050, L100.0100, L501.2450 ####[facility] [address] [place], [address] EST GFR - AA 92 mL/min Normal >60 [facility] Comment on above: Result Comment: Afri can [place] Islander GFR Calc Performed By: #### L 500.4050, L100.0100, L501.2450 ####[facility] [address] [place], [address] GAP 7 Normal 5-[address] [facility] Comment on above: Performed By: #### L 500.4050, L100.0100, L501.2450 ####[facility] [address] [place], [address] GFR/1.73 sq M.predicted among non-blacks MDRD (S/P/Bld) [Vol rate/Area] 76 mL/min/{1.73_m2} Normal >60 [facility] Comment on above: Result Comment: Non- GFR Calc Performed By: #### L 500.4050, L100.0100, L501.2450 ####[facility] [address] [place], [address] Globulin (S) [Mass/Vol] 3.3 g/dL Normal 2.2-4.2 [facility] Comment on above: Performed By: #### L 500.4050, L100.0100, L501.2450 ####[facility] [address] [place], [address] Glucose [Mass/Vol] 107 mg/dL High 74-106 [facility] Comment on above: Result Comment: Fast ing Glucose result from 100 to 125 mg/dL suggests IMPAIRED HOMEOSTASIS per A.D.A. criteria. Performed By: #### L 500.4050, L100.0100, L501.2450 ####[facility] [address] [place], [address] Potassium [Moles/Vol] 3.5 mmol/L Normal 3.5-5.1 [facility] Comment on above: Performed By: #### L 500.4050, L100.0100, L501.2450 ####[facility] [address] [place], [address] Sodium [Moles/Vol] 139 mmol/L Normal 136-145 [facility] Comment on above: Performed By: #### L 500.4050, L100.0100, L501.2450 ####[facility] [address] [place], [address] T PROT 7.7 g/dL Normal 6.4-8.[address] [facility] Comment on above: Performed By: #### L 500.4050, L100.0100, L501.2450 ####[facility] [address] [place], [address] Urea nitrogen [Mass/Vol] 6 mg/dL Low 7-18 [facility] Comment on above: Performed By: #### L 500.4050, L100.0100, L501.2450 ####[facility] [address] [place], [address] Emergency Department Summary on 06-19-2024 Emergency Department Summary [facility] Medical Records Department [address] [place] [address] Emergency Department Summary 06/19/24 MR#: [id number] Acct: [id number] Name: INGRID VIERA Rep #: [id number] : 1970 53 From: Mat Zambrano DO PCP: Dr. Skye Poon DO Status:REG ER Location: ED ADDENDUM by Dr. Mat Zambrano DO on 06/19/24 at 1822 Patient's EKG reviewed and independently interpreted myself which showed sinus rhythm rate of 74 bpm with PVCs noted. 06/19/241821 Cosigner Signature (if applicable): cc: Dr. Skye Poon DO * Signed HPI History of Present Illness Chief Complaint: Abd Pain Narrative Narrative: Patient is a 53-year-old female with past medical history of asthma, blood clots who presents to the emergency department with a chief complaint of abdominal pain. Patient states that she is scheduled to have her gallbladder removed towards the end of this month in [place]. Said that she has had worsening pain starting on Tuesday she called her surgeon and they were unable to move her surgery up. She was told that if her pain worsens to go to the local emergency department which prompted her to come here for further evaluation management. [facility] Medical History History of blood clots Asthma Abscess of back Home Medications ???Medication ???Instructions ???Recorded ???Last Taken ???Type albuterol 90 mcg-budesonide 80 2 inh inhalation .prn 09/26/23 Unknown History mcg/actuation HFA aerosol inhaler dicyclomine 10 mg capsule 10 mg PO TID #30 caps 06/19/24 Unknown Rx omeprazole 40 mg capsule,delayed 40 mg PO DAILY 06/19/24 Unknown History release ondansetron 4 mg disintegrating 4 mg PO Q6H PRN nausea and 06/19/24 Unknown Rx tablet vomiting #20 tabs oxycodone-acetaminophen 5 mg-325 1 tab PO Q6H PRN pain 3 days #12 06/19/24 Unknown Rx mg tablet (Percocet) tabs Allergy/AdvReac Type Severity Reaction Status Date / Time No Known Allergies Allergy Verified 06/19/24 13:15 Family History Father Cancer Mother Cancer Osteoporosis Sister Hypertension Osteoporosis Surgical History History of excision of pilonidal cyst Social History Smoking Status: Never smoker alcohol intake: never substance use type: does not use ROS ROS ED ROS Narrative Constitutional: Denies any fevers, chills, headaches, lightness, dizziness Cardiovascular: Denies chest pain or palpitations Respiratory: Denies coughing wheezing shortness of breath Abdomen: Complains of abdominal pain as noted above and nausea denies vomiting or diarrhea : Denies any urinary symptoms Neurological: Denies numbness, weakness, tingling Musculoskeletal: Denies back pain Skin: Denies rashes or lesions EXAM Physical Exam Narrative Exam Narrative: General: Patient lying in bed rest comfortably did not appear to be in acute distress Head: Atraumatic, normocephalic Eyes: PERRL bilaterally, EOMI bilateral, no conjunctival injection noted Neck: Soft, supple, trach midline Cardiovascular: Regular rate and rhythm no murmurs gallops rubs noted Respiratory: Clear to auscultation bilaterally no rales rhonchi or wheezes noted Abdomen: Soft, nondistended, tenderness palpation the right upper quadrant positive Iraheta sign on exam, no rebound or guarding on exam Extremities: +5/5 strength noted in the bilateral upper and lower extremities, no pedal edema on exam, radial pulses +2/4 in the bilateral upper extremities Neurological: Patient following commands knew that she was at [facility] years 2023 Skin: Warm, dry, intact Const Vital Signs: 06/19/24 13:15 06/19/24 15:15 06/19/24 17:00 Temperature 96.9 F L Temperature Source Temporal Pulse Rate 87 69 65 Respiratory Rate 16 16 Blood Pressure 160/94 H 125/71 H 117/73 Blood Pressure Mean 116 89 87 Pulse Ox 98 98 Oxygen Delivery Method Room Air Room Air MDM MDM MDM Narrative Medical decision making narrative: patient is a 53-year-old female who presents to the emerged part with a chief complaint of right upper quadrant abdominal pain. Patient will have a workup performed here on the differential diagnose includes Melamin to cholecystitis, choledocholithiasis, pancreatitis. Once workup is obtained reviewed she will be reevaluated. Patient be given morphine Zofran. Patient's CBC reviewed and showed no evidence leukocytosis white blood count normal 5.3, hemoglobin 15.1, platelet count normal at 150. Patient sodium normal at 139, potassium normal 3.5, creatinine normal at 0.84. Patient's AST and ALT were normal at 30 and 45 respectively, (more content not included)... Normal [facility] Gallbladderon 06-19-2024 Gallbladder [facility] Imaging Services [address] [place] [address] Gallbladder MR#: [id number] Acct: [id number] Name: INGRID VIERA Rep #: [id number] : 1970 F 53 From: Smith zamora MD PCP: Dr. Skye Poon DO Status: REG ER Study: Gallbladder Date of Exam: 06/19/24 Exam# [id number] Ordering [place]: [place] [id number] STUDY: ULTRASOUND GALLBLADDER REASON FOR VISIT: Female, 53 years old. Pain TECHNIQUE: Ultrasound evaluation of the gallbladder was performed with real-time and static rowe-scale imaging. TECHNICAL QUALITY: Limited. Examination limited due to a combination of factors including obesity and bowel gas. COMPARISON: None. FINDINGS: Gallbladder: There is a markedly distended gallbladder. The gallbladder wall measures 2 mm. There is a negative sonographic Iraheta''s sign. There is no pericholecystic fluid. There are multiple echogenic structures within the gallbladder, consistent with multiple gallstones. Common Bile Duct (C.B.D.): The common bile duct measures 4 mm. US/Gallbladder IMPRESSION: Cholelithiasis. Negative Iraheta''s sign. No wall thickening. Electronically Signed: Smith Rodriguez MD at 16:56 EST , CC: Dr. Skye Poon, DO; Dr. Mat Zambrano, DO Aoc Director Intelligence Officer: Signed Normal [facility] Lipaseon 06-19-2024 Lipase [Catalytic activity/Vol] 34 U/L Normal 13-75 [facility] Comment on above: Result Comment: Dallas haddad note: LIPASE revised reference range effective 22. New Lipase methodology. Expected to produce lower values than the previous assay method. NEW Reference Range: 13 - 75 U/L Performed By: #### L 500.4050, L100.0100, L501.2450 ####[facility] [address] [place], [address] Urinalysis, Completeon 06-19 RBC 0-5 SEEN Normal 0-[address] [facility] Comment on above: Order Comment: CLEAN CATCH Performed By: #### L 400.0001 ####[facility] [address] [place], [address] BACTERIA 2+ /hpf Normal None Seen [facility] Comment on above: Order Comment: CLEAN CATCH Performed By: #### L 400.0001 ####[facility] [address] [place], [address] EPI,RENAL 5-10 SEEN Normal 0-[address] [facility] Comment on above: Order Comment: CLEAN CATCH Performed By: #### L 400.0001 ####[facility] [address] [place], [address] EPI,SQUAMOUS 5-10 SEEN Normal 5-10 [facility] Comment on above: Order Comment: CLEAN CATCH Performed By: #### L 400.0001 ####[facility] [address] [place], [address] WBC 25-50 SEEN Normal 0-[address] [facility] Comment on above: Order Comment: CLEAN CATCH Performed By: #### L 400.0001 ####[facility] [address] [place], [address] Mucus Ql (Urine sed) 0 SEEN Normal [facility] Comment on above: Order Comment: CLEAN CATCH Performed By: #### L 400.0001 ####[facility] [address] [place], [address] US RUQ (GB/PANCREAS)on 06-04 US RUQ (GB/PANCREAS) [address] [address] Patient: INGRID VIERA Phone#: : 1970 Age: 53 Gender: F Pt. Type: Out Account: [id number] Location: [facility] Ordering: SKYE POON Exam Date: 06/04/2024/7:55 Family Phys: Charge Code: [id number] Physician: Rock Order #: [id number] Dose#: PROCEDURE: RUQ (GB) ULTRASOUND COMPARISON: None. INDICATIONS: Ruq pain FINDINGS: LIVER: Fatty changes of the liver are present. BILIARY: Echogenic foci are present in the dependent aspect of the gallbladder with acoustical shadowing consistent with calculi. The common bile duct is normal at 2.9 millimeters. PANCREAS: Normal. No visible mass, abnormal atrophy, or ductal dilatation. RIGHT KIDNEY: Normal. No mass or obstruction. OTHER: Negative. CONCLUSION: 1. Cholelithiasis. 2. Fatty changes of the liver are present. DICTATED BY: POOL AMARO MD ON 06/04/2024 AT 11:22 APPROVED BY: POOL AMARO MD ON 06/04/2024 AT 11:36 Normal [facility] Amylaseon 05-31-2024 IVORY 21 U/L Low 25-[address] [facility] Comment on above: Performed By: #### L 501.6710, L100.0100, L501.2400, L501.2450, L101.9900, L500.4050 #### [facility] [address] [facility]. [place], [place], [id number] CBC W/Diff, Automatedon - Absolute Lymph 2.08 X10 3/uL Normal 0.83-4.51 [facility] Comment on above: Performed By: #### L 501.6710, L100.0100, L501.2400, L501.2450, L101.9900, L500.4050 #### [facility] [address] [place], [place], [id number] Absolute Neut 4.0 X10 3/uL Normal 2.0-7.7 [facility] Comment on above: Performed By: #### L 501.6710, L100.0100, L501.2400, L501.2450, L101.9900, L500.4050 #### [facility] [address] [place], [address] Basophils/100 WBC (Bld) 0.5 % Normal 0-1 [facility] Comment on above: Performed By: #### L 501.6710, L100.0100, L501.2400, L501.2450, L101.9900, L500.4050 #### [facility] [address] [place], [address] Eosinophils/100 WBC (Bld) 1.2 % Normal 0-5 [facility] Comment on above: Performed By: #### L 501.6710, L100.0100, L501.2400, L501.2450, L101.9900, L500.4050 #### [facility] [address] [place], [address] Erythrocyte distribution width (RBC) [Ratio] 11.9 % Normal 11.6-14.6 [facility] Comment on above: Performed By: #### L 501.6710, L100.0100, L501.2400, L501.2450, L101.9900, L500.4050 #### [facility] [address] [place], [address] Hematocrit (Bld) [Volume fraction] 40.4 % Normal 37-[address] [facility] Comment on above: Performed By: #### L 501.6710, L100.0100, L501.2400, L501.2450, L101.9900, L500.4050 #### [facility] [address] [place], [address] Hemoglobin (Bld) [Mass/Vol] 14.0 g/dL Normal 12.0-15.0 [facility] Comment on above: Performed By: #### L 501.6710, L100.0100, L501.2400, L501.2450, L101.9900, L500.4050 #### [facility] [address] [place], [address] IG% 0.300 Normal 0.0-0.[address] [facility] Comment on above: Result Comment: IG% - Immature Granulocytes (promyelocytes, myelocytes and metamyelocytes) > 1% indicates that a LEFT SHIFT is Present. Performed By: #### L 501.6710, L100.0100, L501.2400, L501.2450, L101.9900, L500.4050 #### [facility] [address] [place], [address] Lymphocytes/100 WBC (Bld) 31.5 % Normal 19-41 [facility] Comment on above: Performed By: #### L 501.6710, L100.0100, L501.2400, L501.2450, L101.9900, L500.4050 #### [facility] [address] [place], [address] MCH (RBC) [Entitic mass] 34.7 pg High 27.0-32.0 [facility] Comment on above: Performed By: #### L 501.6710, L100.0100, L501.2400, L501.2450, L101.9900, L500.4050 #### [facility] [address] [place], [address] MCHC (RBC) [Mass/Vol] 34.7 g/dL Normal 32-36 [facility] Comment on above: Performed By: #### L 501.6710, L100.0100, L501.2400, L501.2450, L101.9900, L500.4050 #### [facility] [address] [place], [address] MCV (RBC) [Entitic vol] 100.0 fL High 81-99 [facility] Comment on above: Performed By: #### L 501.6710, L100.0100, L501.2400, L501.2450, L101.9900, L500.4050 #### [facility] [address] [place], [address] Monocytes/100 WBC (Bld) 6.5 % Normal 0-10 [facility] Comment on above: Performed By: #### L 501.6710, L100.0100, L501.2400, L501.2450, L101.9900, L500.4050 #### [facility] [address] [place], [address] Neutrophils/100 WBC (Bld) 60.0 % Normal 47-70 [facility] Comment on above: Performed By: #### L 501.6710, L100.0100, L501.2400, L501.2450, L101.9900, L500.4050 #### [facility] [address] [place], [address] Nucleated RBC (Bld) [#/Vol] 0 10*3/uL Normal 0-5 [facility] Comment on above: Performed By: #### L 501.6710, L100.0100, L501.2400, L501.2450, L101.9900, L500.4050 #### [facility] [address] [place], [address] Platelet mean volume (Bld) [Entitic vol] 8.8 fL Normal 6.2-12.0 [facility] Comment on above: Performed By: #### L 501.6710, L100.0100, L501.2400, L501.2450, L101.9900, L500.4050 #### [facility] [address] [place], [address] Platelets (Bld) [#/Vol] 160 10*3/uL Normal 150-450 [facility] Comment on above: Performed By: #### L 501.6710, L100.0100, L501.2400, L501.2450, L101.9900, L500.4050 #### [facility] [address] [place], [address] RBC (Bld) [#/Vol] 4.04 10*6/uL Low 4.2-5.4 [facility] Comment on above: Performed By: #### L 501.6710, L100.0100, L501.2400, L501.2450, L101.9900, L500.4050 #### [facility] [address] [place], [address] RDW SD 43.5 fl Normal 35.1-43.[address] [facility] Comment on above: Performed By: #### L 501.6710, L100.0100, L501.2400, L501.2450, L101.9900, L500.4050 #### [facility] [address] [place], [address] WBC (Bld) [#/Vol] 6.6 10*3/uL Normal 4.4-11.0 [facility] Comment on above: Performed By: #### L 501.6710, L100.0100, L501.2400, L501.2450, L101.9900, L500.4050 #### [facility] [address] [place], [address] CRPon 05-31-2024 C-REACTIVE PROT 6.90 mg/L High 0.0-3.0 [facility] Comment on above: Result Comment: C-Re active Protein (CRP) provides useful information for the diagnosis, therapy and monitoring of inflammatory processes and associated diseases. For the evaluation of Relative Risk for Cardiovascular Disease, a High Sensitivity CRP (HSCRP) should be ordered. Performed By: #### L 501.6710, L100.0100, L501.2400, L501.2450, L101.9900, L500.4050 ####[facility] [address] [place], [address] [facility] 05-31-2024 Albumin [Mass/Vol] 4.2 g/dL Normal 3.2-5.0 [facility] Comment on above: Performed By: #### L 501.6710, L100.0100, L501.2400, L501.2450, L101.9900, L500.4050 #### [facility] [address] [place], [address] Albumin/Globulin [Mass ratio] 1.3 {ratio} Normal 0.9-2.4 [facility] Comment on above: Performed By: #### L 501.6710, L100.0100, L501.2400, L501.2450, L101.9900, L500.4050 #### [facility] [address] [place], [address] ALK P 91 U/L Normal 45-[address] [facility] Comment on above: Performed By: #### L 501.6710, L100.0100, L501.2400, L501.2450, L101.9900, L500.4050 #### [facility] [address] [place], [address] ALT [Catalytic activity/Vol] 45 U/L Normal 13-56 [facility] Comment on above: Performed By: #### L 501.6710, L100.0100, L501.2400, L501.2450, L101.9900, L500.4050 #### [facility] [address] [place], [address] AST [Catalytic activity/Vol] 34 U/L Normal 15-37 [facility] Comment on above: Performed By: #### L 501.6710, L100.0100, L501.2400, L501.2450, L101.9900, L500.4050 #### [facility] [address] [place], [address] Bilirubin [Mass/Vol] 0.70 mg/dL Normal 0.20-1.00 [facility] Comment on above: Result Comment: For patients on eltrombopag therapy, use of Dimension Eden TBIL is not recommended. Performed By: #### L 501.6710, L100.0100, L501.2400, L501.2450, L101.9900, L500.4050 #### [facility] [address] [place], [address] BUN/CRE 14.6 RATIO Normal 10-[address] [facility] Comment on above: Performed By: #### L 501.6710, L100.0100, L501.2400, L501.2450, L101.9900, L500.4050 #### [facility] [address] [place], [address] CA,Total 9.4 mg/dL Normal 8.5-10.[address] [facility] Comment on above: Performed By: #### L 501.6710, L100.0100, L501.2400, L501.2450, L101.9900, L500.4050 #### [facility] [address] [place], [address] Chloride [Moles/Vol] 105 mmol/L Normal 98-107 [facility] Comment on above: Performed By: #### L 501.6710, L100.0100, L501.2400, L501.2450, L101.9900, L500.4050 #### [facility] [address] [place], [address] CO2 [Moles/Vol] 28.0 mmol/L Normal 21.0-32.0 [facility] Comment on above: Performed By: #### L 501.6710, L100.0100, L501.2400, L501.2450, L101.9900, L500.4050 #### [facility] [address] [place], [address] Creatinine [Mass/Vol] 0.82 mg/dL Normal 0.55-1.02 [facility] Comment on above: Result Comment: The validity of the calculated GFR GFRAA in patients over 70 years has not been determined. Clinical correlation is essential. Performed By: #### L 501.6710, L100.0100, L501.2400, L501.2450, L101.9900, L500.4050 #### [facility] [address] [place], [address] EST GFR - AA 93 mL/min Normal >60 [facility] Comment on above: Result Comment: Afri can [place] Islander GFR Calc Performed By: #### L 501.6710, L100.0100, L501.2400, L501.2450, L101.9900, L500.4050 #### [facility] [address] [facility] [place], [address] GAP 7 Normal 5-[address] [facility] Comment on above: Performed By: #### L 501.6710, L100.0100, L501.2400, L501.2450, L101.9900, L500.4050 #### [facility] [address] [place], [address] GFR/1.73 sq M.predicted among non-blacks MDRD (S/P/Bld) [Vol rate/Area] 77 mL/min/{1.73_m2} Normal >60 [facility] Comment on above: Result Comment: Non- GFR Calc Performed By: #### L 501.6710, L100.0100, L501.2400, L501.2450, L101.9900, L500.4050 #### [facility] [address] [place], [address] Globulin (S) [Mass/Vol] 3.2 g/dL Normal 2.2-4.2 [facility] Comment on above: Performed By: #### L 501.6710, L100.0100, L501.2400, L501.2450, L101.9900, L500.4050 #### [facility] [address] [place], [address] Glucose [Mass/Vol] 105 mg/dL Normal 74-106 [facility] Comment on above: Result Comment: Fast ing Glucose result from 100 to 125 mg/dL suggests IMPAIRED HOMEOSTASIS per A.D.A. criteria. Performed By: #### L 501.6710, L100.0100, L501.2400, L501.2450, L101.9900, L500.4050 #### [facility] [address] [place], [address] Potassium [Moles/Vol] 3.8 mmol/L Normal 3.5-5.1 [facility] Comment on above: Performed By: #### L 501.6710, L100.0100, L501.2400, L501.2450, L101.9900, L500.4050 #### [facility] [address] [place], [address] Sodium [Moles/Vol] 140 mmol/L Normal 136-145 [facility] Comment on above: Performed By: #### L 501.6710, L100.0100, L501.2400, L501.2450, L101.9900, L500.4050 #### [facility] [address] [place], [address] T PROT 7.4 g/dL Normal 6.4-8.[address] [facility] Comment on above: Performed By: #### L 501.6710, L100.0100, L501.2400, L501.2450, L101.9900, L500.4050 #### [facility] [address] [place], [address] Urea nitrogen [Mass/Vol] 12 mg/dL Normal 7-18 [facility] Comment on above: Performed By: #### L 501.6710, L100.0100, L501.2400, L501.2450, L101.9900, L500.4050 #### [facility] [address] [place], [address] Erythrocyte Sed Rateon 05-31 SED RATE 5 mm/hr Normal 0-[address] [facility] Comment on above: Performed By: #### L 501.6710, L100.0100, L501.2400, L501.2450, L101.9900, L500.4050 #### [facility] [address] [place], [address] Lipaseon 05-31-2024 Lipase [Catalytic activity/Vol] 30 U/L Normal 13-75 [facility] Comment on above: Result Comment: [place] haddad note: LIPASE revised reference range effective 22. New Lipase methodology. Expected to produce lower values than the previous assay method. NEW Reference Range: 13 - 75 U/L Performed By: #### L 501.6710, L100.0100, L501.2400, L501.2450, L101.9900, L500.4050 #### [facility] [address] [place], [address] Surgery Visit Reporton 09-26 Surgery Visit Report [facility] [address] [place], [place] [address] OFFICE VISIT Date of Service: 09/26/23 MR#: [id number] Acct: [id number] Name: INGRID VIERA Rep #: [id number] : 1970 Provider: EMELY rodriguez Age/Sex: 53/F Location: [facility] Status: Signed Intake Vital Signs 05/30/20 10:42 09/26/23 13:08 Height 5 ft 7 in 5 ft 7 in Weight: 215 lb BMI 33.6 BP 121/87 H Blood Pressure Location Lt brachial Position Sitting Respiration 18 Pulse 99 Pulse Source Monitor Temp 97.9 F Temp Source Temporal Pulse Oximetry (%) 99 Oxygen Delivery Method room air Intake Visit Reasons: INFECTED ABSCESS Chief Complaint: Back abscess Director [place] Required: No Accompanied by: Is patient in pain?: No Allergies No Known Allergies Allergy (Verified 09/26/23 13:09) Medications albuterol 90 mcg-budesonide 80 mcg/actuation HFA aerosol inhaler 2 inh inhalation .prn 09/26/23 [History Confirmed 09/26/23] fluticasone propionate 110 mcg/actuation HFA aerosol inhaler 1 puff inhalation BID 09/26/23 [History Confirmed 09/26/23] ondansetron HCl 4 mg tablet mg PO Q8H PRN 09/26/23 [History Confirmed 09/26/23] oxycodone-acetaminophen 5 mg-325 mg tablet tab PO Q6H PRN 09/26/23 [History Confirmed 09/26/23] sulfamethoxazole 800 mg-trimethoprim 160 mg tablet 2 tab PO BID 09/26/23 [History Confirmed 09/26/23] PFSH Medical History (Updated 09/26/23 @ 15:45 by Isis ORTEGA PA-C) Abscess of back Asthma History of blood clots Surgical History (Updated 09/26/23 @ 13:05 by Maria Guadalupe De La Paz) History of excision of pilonidal cyst Family History Father Cancer Mother Cancer Osteoporosis Sister Hypertension Osteoporosis Social History (Updated 09/26/23 @ 13:08 by Maria Guadalupe De La Paz) Smoking Status: Unknown if ever smoked alcohol intake: never substance use type: does not use HPI HPI HPI: Patient is a 53 y/o F who presents with a non-healing abscess of the left upper back. Patient states she was evaluated by her PCP who performed an aspiration of the abscess in office. Patient notes a few days later the area was not feeling any improvement and proceeded to the nearest emergency room, where she had an incision and drainage. Patient notes she was placed on Bactrim at the ED. She notes the area continues to be painful and it is draining yellowish fluid. Patient returned to her PCP where she was then referred over to our office. Patient notes the lump has been there for years and has never bothered her. She notes she has another cyst on her back which has never bothered her. She states the pain and redness started approximately 1 week ago. She denies fever, chills. She notes tolerating her antibiotic well. Patient states her PCP took a culture of the fluid and sent it off. ROS General General: No weight change, appetite, fatigue, colon cancer, breast cancer or weakness HEENT HEENT: No difficulty swallowing, eye injury, eye surgery, swollen glands or hoarseness Endo Endocrine: No thyroid disease, diabetes mellitus, thyroid cancer, Hair loss, heat intolerance or cold intolerance Skin Skin: No rash or changing moles Breast Breast: No left breast lump, right breast lump, nipple discharge, breast pain, abnormal mammogram, abnormal US or breast enlargement Musc Musculoskeletal: No back problems, arthritis, rheumatoid arthritis, gout or joint pain Cardio Cardiovascular: No murmur, pacemaker, heart disease, atrial fibrillation, high blood pressure, heart attack, heart stent, palpitations, shortness of breat with exertion or chest pain Psych Psychiatric: No depression, anxiety or hearing voices Resp Respiratory: No shortness of breath, No sleep apnea, No cough, No COPD, Yes asthma, No emphysema and No wheezing Gastro Gastrointestinal: No abdominal pain, No nausea or vomiting, No diarrhea, No constipation, No blood in stool, No acid reflux, No hemorrhoids, No ulcers, No gallbladder problem and No black,tarry stools Jem Hematologic: No blood thinners, No blood disorders, No bleeding, No anemia and Yes blood clots Neuro Neurologic: No system reviewed and no additional complaints, except as documented, No as per HPI, No abnormal gait, No abnormal hearing, No abnormal movements, No abnormal speech, No behavioral changes, No burning sensations, No confusion, No convulsions, No disequilibrium, No dizziness, No localized weakness, No frequent falls, No headache(s), No lack of coordination, No loss of vision, No memory loss, No numbness, No other visual disturbances, No radicular pain, No restless legs, No sensory deficit, No syncope, No tingling, No tremor(s), No weakness and No other Exam Const General: cooperative, healthy appearing and comforta (more content not included)... Normal [facility] Urinalysis, Complete W/ Micr oscopic Examination with reflex to urine culture, routine (66796)Ordered By: Model And Pattern Supervisor on 02-22-2023 Appearance (U) Clear Normal [facility]; [facility] Work Phone: Comment on above: PATIENT NOT FASTINGP ERFORMED BY: CB [facility] [address] [place] [id number] Color (U) Yellow Normal [facility]; [facility] Work Phone: Comment on above: PATIENT NOT FASTINGP ERFORMED BY: CB [facility] [id number] [place] [id number] Glucose Ql (U) Negative Normal [facility]; [facility] Work Phone: Comment on above: PATIENT NOT FASTINGP ERFORMED BY: CB [facility] [address] [place] [id number] pH (U) 6.5 [pH] Normal 5.0-7.5 [facility]; [facility] Work Phone: Comment on above: PATIENT NOT FASTINGP ERFORMED BY: CB [facility] [id number] [place] [id number] Protein Ql (U) 1+ Abnormal [facility]; [facility] Work Phone: Comment on above: PATIENT NOT FASTINGP ERFORMED BY: CB [facility] [address] [place] [id number] Specific gravity (U) [Rel density] 1.006 1 Normal 1.005-1.030 [facility]; [facility] Work Phone: Comment on above: PATIENT NOT FASTINGP ERFORMED BY: CB [facility] [address] [place] [id number] Urinalysis, Complete W/ Microscopic Examination with reflex to urine culture, routine (98939) 2+ Abnormal [facility]; [facility] Work Phone: Comment on above: PATIENT NOT FASTINGP ERFORMED BY: TIERNEY [facility] [address] [place] [id number] Urinalysis, Complete W/ Microscopic Examination with reflex to urine culture, routine (83330) 3+ Abnormal [facility]; [facility] Work Phone: Comment on above: PATIENT NOT FASTINGP ERFORMED BY: CB [facility] [address] [place] [id number] Urinalysis, Complete W/ Microscopic Examination with reflex to urine culture, routine (48429) 0.2 mg/dL Normal 0.2-1.0 [facility]; [facility] Work Phone: Comment on above: PATIENT NOT FASTINGP ERFORMED BY: CB [facility] [id number]Dublin [place] [id number] Urinalysis, Complete W/ Microscopic Examination with reflex to urine culture, routine ([id number]) Negative Normal [facility]; [facility] Work Phone: Comment on above: PATIENT NOT FASTINGP ERFORMED BY: CB [facility] [id number] [address]Dublin [place] [id number] Urinalysis, Complete W/ Microscopic Examination with reflex to urine culture, routine (00232) See below: Normal [facility]; [facility] Work Phone: Comment on above: Microscopic was sheldon cated and was performed. PATIENT NOT FASTINGP ERFORMED BY: CB [facility] [id number]bl[address] [place] [id number] Urinalysis, Complete W/ Microscopic Examination with reflex to urine culture, routine ([id number]) FLEX Normal [facility]; [facility] Work Phone: Comment on above: This specimen has re flexed to a Urine Culture. PATIENT NOT FASTINGP ERFORMED BY: CB [facility] [id number] [address]Dublin [place] [id number] Urinalysis, Office ([id number])on 02-22-2023 Bilirubin Ql (U) Negative Normal Comprehe nsive [facility]; [facility] Work Phone: Comment on above: PATIENT NOT FASTINGP ERFORMED BY: TIERNEY [email or web address] [employer] Life SciencesCardinal Hill Rehabilitation Center [id number] Glucose Test strip (U) [Mass/Vol] Negative Normal [facility]; [facility] Work Phone: Hemoglobin Ql (U) +++ Abnormal Compreh ensive [facility]; [facility] Work Phone: Ketones Ql (U) Negative Normal Comprehens [facility]; [facility] Work Phone: Comment on above: PATIENT NOT FASTINGP ERFORMED BY: TIERNEY [employer]70 BonegrafixNov[facility] Rehabilitation Hospital [id number] Leukocyte esterase Test strip Ql (U) Small Normal [facility]; [facility] Work Phone: Nitrite Ql (U) Negative Normal Comprehens [facility]; [facility] Work Phone: pH (U) 6.0 [pH] Normal [facility]; [facility] Work Phone: Protein Ql (U) Trace Normal Comprehens [facility]; [facility] Work Phone: Specific gravity (U) [Rel density] 1.010 1 Normal [facility]; [facility] Work Phone: Urobilinogen (24H U) [Mass/Time] Normal Normal [facility]; [facility] Work Phone: URINE TRA CULTURE-IDENTIFICA [place] ([id number])Ordered By: Model And Pattern Supervisor on 01-19-2022 Bacteria identified Cx Nom (U) Final report Abnormal [facility]; [facility] Work Phone: Comment on above: PATIENT NOT FASTINGP ERFORMED BY: TIERNEY [email or web address] [employer] PowerFormerly [facility] [id number] Information: SRC:UC Bacteria identified Cx Nom (U) Escherichia coli Abnormal [facility]; [facility] Work Phone: Comment on above: Cefazolin <=4 ug/mLC efazolin with an ROLAN <=16 predicts susceptibility to the oral agentscefaclor, cefdinir, cefpodoxime, cefprozil, cefuroxime, cephalexin,and loracarbef when used for therapy of uncomplicated urinary tractinfections due to E. coli, Klebsiella pneumoniae, and Proteusmirabilis.Greater than 100,000 colony forming units per mL PATIENT NOT FASTINGP ERFORMED BY: [email or web address] [employer] [place] [id number] Information: SRC:CRISTAL Other Antibiotic [Susc] MIHEAD Normal [facility]; [facility] Work Phone: Comment on above: S = Susceptible; I = Intermediate; R = Resistant P = Positive; N = Negative MICS are expressed in micrograms per mL Antibiotic RSLT#1 RSLT#2 RSLT#3 RSLT#4Amoxicillin/Clavulanic Acid SAmpicillin SCefepime SCeftriaxone SCefuroxime SCiprofloxacin SErtapenem SGentamicin SImipenem SLevofloxacin SMeropenem SNitrofurantoin SPiperacillin/Tazobactam STetracycline STobramycin STrimethoprim/Sulfa S PATIENT NOT FASTINGP ERFORMED BY: TIERNEY [employer]70 [employer] [place] [id number] Information: SRC:CRISTAL Urinalysis, Office ([id number])on 01-19-2022 Bilirubin Ql (U) Negative Normal Comprehe nsive [facility]; [facility] Work Phone: Glucose Test strip (U) [Mass/Vol] Negative Normal [facility]; [facility] Work Phone: Hemoglobin Ql (U) +++ Abnormal Compreh ens[facility]; [facility] Work Phone: Ketones Ql (U) Negative Normal Comprehens [facility]; [facility] Work Phone: Leukocyte esterase Test strip Ql (U) Large Normal [facility]; [facility] Work Phone: Comment on above: 3+ Nitrite Ql (U) Negative Normal [facility]; [facility] Work Phone: pH (U) 6.0 [pH] Normal [facility]; [facility] Work Phone: Protein Ql (U) ++ Abnormal Comprehens [facility]; [facility] Work Phone: Specific gravity (U) [Rel density] 1.015 1 Normal [facility]; [facility] Work Phone: Urobilinogen (24H U) [Mass/Time] Normal Normal [facility]; [facility] Work Phone: Vital Signs Date Time Vital Sign Value Performing Clinician Facility 02-22-2023 08:06-0400 Body height 172.72 cm Allie Slarb [employer] [facility]; [facility] Work Phone: 02-22-2023 08:06-0400 Body mass index (BMI) [Ratio] 40.29 kg/m2 Allie Slarb [employer] [facility]; [facility] Work Phone: 02-22-2023 08:06-0400 Body surface area Derived from formula 2.3 m2 Allie Slarb [employer] [facility]; [facility] Work Phone: 02-22-2023 08:06-0400 Body temperature 97.3 [degF] Allie Slarb [employer] [facility]; [facility] Work Phone: Comment on above: Method: Temporal 02-22-2023 08:06-0400 Body weight 120.2 kg Allie Slarb [employer] [facility]; [facility] Work Phone: 02-22-2023 08:06-0400 Diastolic blood pressure 78 mm[Hg] Allie Slarb [employer] [facility]; [facility] Work Phone: Comment on above: Patient Position: Sitting; Cuff Location : Left Arm; Cuff Size: Standard 02-22-2023 08:06-0400 Heart rate 93 /min Allie Slarb [employer] [facility]; [facility] Work Phone: Comment on above: Pattern: Regular 02-22-2023 08:06-0400 Respiratory rate 17 /min Allie Slarb [employer] [facility]; [facility] Work Phone: Comment on above: Pattern: Unlabored 02-22-2023 08:06-0400 SaO2% (BldA) [Mass fraction] 97 % Allie Mckenna [facility]; [facility] Work Phone: Comment on above: Room air 02-22-2023 08:06-0400 Systolic blood pressure 118 mm[Hg] Allie Mckenna [facility]; [facility] Work Phone: Comment on above: Patient Position: Sitting; Cuff Location : Left Arm; Cuff Size: Standard 10-25-2022 11:24-0400 Body height 172.72 cm Wendy Ramos [facility]; [facility] Work Phone: 10-25-2022 11:24-0400 Body mass index (BMI) [Ratio] 40.29 kg/m2 [facility]; [facility] Work Phone: 10-25-2022 11:24-0400 Body surface area Derived from formula 2.3 m2 [facility]; [facility] Work Phone: 10-25-2022 11:24-0400 Body temperature 98.1 [degF] [facility]; [facility] Work Phone: Comment on above: Method: Thermal Scan 10-25-2022 11:24-0400 Body weight 120.2 kg [facility]; [facility] Work Phone: 10-25-2022 11:24-0400 Diastolic blood pressure 74 mm[Hg] [facility]; [facility] Work Phone: Comment on above: Patient Position: Sitting; Cuff Location : Left Arm; Cuff Size: Standard 10-25-2022 11:24-0400 Heart rate 90 /min [facility]; [facility] Work Phone: Comment on above: Pattern: Regular 03-27-2023 11:24-0400 Respiratory rate 16 /min Wendy Ramos [facility]; [facility] Work Phone: Comment on above: Pattern: Unlabored 10-25-2022 11:24-0400 SaO2% (BldA) [Mass fraction] 95 % Wendy Ramos [facility]; [facility] Work Phone: Comment on above: Room air 10-25-2022 11:24-0400 Systolic blood pressure 124 mm[Hg] Wendy Ramos [facility]; [facility] Work Phone: Comment on above: Patient Position: Sitting; Cuff Location : Left Arm; Cuff Size: Standard 10-04-2022 11:25-0500 Body height 172.72 cm Wendy Ramos [facility]; [facility] Work Phone: 10-04-2022 11:25-0500 Body mass index (BMI) [Ratio] 40.29 kg/m2 Wendy Ramos [facility]; [facility] Work Phone: 10-04-2022 11:25-0500 Body surface area Derived from formula 2.3 m2 Wendy Ramos [facility]; [facility] Work Phone: 10-04-2022 11:25-0500 Body temperature 98.1 [degF] Wendy Ramos [facility]; [facility] Work Phone: Comment on above: Method: Thermal Scan 10-04-2022 11:25-0500 Body weight 120.2 kg Wendy Ramos [facility]; [facility] Work Phone: 10-04-2022 11:25-0500 Diastolic blood pressure 80 mm[Hg] Wendy Ramos [facility]; [facility] Work Phone: Comment on above: Patient Position: Sitting; Cuff Location : Left Arm; Cuff Size: Standard 10-04-2022 11:25-0500 Heart rate 93 /min Wendy Ramos [facility]; [facility] Work Phone: Comment on above: Pattern: Regular 10-04-2022 11:25-0500 Respiratory rate 16 /min Wendy [facility]; [facility] Work Phone: Comment on above: Pattern: Unlabored 10-04-2022 11:25-0500 SaO2% (BldA) [Mass fraction] 96 % Wendy [facility]; [facility] Work Phone: Comment on above: Room air 10-04-2022 11:25-0500 Systolic blood pressure 120 mm[Hg] Wendy [facility]; [facility] Work Phone: Comment on above: Patient Position: Sitting; Cuff Location : Left Arm; Cuff Size: Standard 09-27-2022 14:53-0500 Body height 172.72 cm [facility]; [facility] Work Phone: 09-27-2022 14:53-0500 Body mass index (BMI) [Ratio] 40.29 kg/m2 [facility]; [facility] Work Phone: 09-27-2022 14:53-0500 Body surface area Derived from formula 2.3 m2 [facility]; [facility] Work Phone: 09-27-2022 14:53-0500 Body temperature 97.7 [degF] [facility] Comprehensiv e [facility]; [facility] Work Phone: 09-27-2022 14:53-0500 Body weight 120.2 kg [facility]; [facility] Work Phone: 09-27-2022 14:53-0500 Diastolic blood pressure 82 mm[Hg] [facility]; [facility] Work Phone: Comment on above: Patient Position: Sitting; Cuff Location : Left Arm; Cuff Size: Standard 09-27-2022 14:53-0500 Heart rate 99 /min [facility]; [facility] Work Phone: Comment on above: Pattern: Regular 09-27-2022 14:53-0500 Respiratory rate 16 /min Amber Weller [facility] Comprehensiv e Internal Medicine; [facility] Work Phone: Comment on above: Pattern: Unlabored 09-27-2022 14:53-0500 SaO2% (BldA) [Mass fraction] 94 % Amber Ortizford [facility]; [facility] Work Phone: Comment on above: Room air 09-27-2022 14:53-0500 Systolic blood pressure 130 mm[Hg] Amber Ortizford [facility]; [facility] Work Phone: Comment on above: Patient Position: Sitting; Cuff Location : Left Arm; Cuff Size: Standard 09-20-2022 13:40-0500 Body height 172.72 cm Allie Mckenna LPN [facility]; [facility] Work Phone: Comment on above: per patient 09-20-2022 13:40-0500 Body mass index (BMI) [Ratio] 39.27 kg/m2 Allie Chalinorb [employer] [facility]; [facility] Work Phone: Comment on above: per patient 09-20-2022 13:40-0500 Body surface area Derived from formula 2.28 m2 Allie Chalinorb [employer] [facility]; [facility] Work Phone: Comment on above: per patient 09-20-2022 13:40-0500 Body weight 117.14 kg Allie Slarb [employer] [facility]; [facility] Work Phone: Comment on above: per patient 09-20-2022 13:40-0500 SaO2% (BldA) [Mass fraction] 90 % Allie Mckenna LPN [facility]; [facility] Work Phone: Comment on above: Room air per patient 01-19-2022 13:15-0400 Body height 172.72 cm Amber Weller [facility]; [facility] Work Phone: 01-19-2022 13:15-0400 Body mass index (BMI) [Ratio] 39.27 kg/m2 [facility]; [facility] Work Phone: 01-19-2022 13:15-0400 Body surface area Derived from formula 2.28 m2 [facility]Sho[facility]San[facility]; [facility] Work Phone: 01-19-2022 13:15-0400 Body weight 117.14 kg [facility]; [facility] Work Phone: 01-19-2022 13:15-0400 Diastolic blood pressure 82 mm[Hg] [facility]; [facility] Work Phone: Comment on above: Patient Position: Sitting; Cuff Location : Left Arm; Cuff Size: Standard 01-19-2022 13:15-0400 Heart rate 102 /min [facility]; [facility] Work Phone: Comment on above: Pattern: Regular 01-19-2022 13:15-0400 SaO2% (BldA) [Mass fraction] 97 % [facility]; [facility] Work Phone: Comment on above: Room air 01-19-2022 13:15-0400 Systolic blood pressure 132 mm[Hg] [facility]; [facility] Work Phone: Comment on above: Patient Position: Sitting; Cuff Location : Left Arm; Cuff Size: Standard 11-09-2021 11:18-0400 Body height 169.55 cm Christy Sweeney [facility]; [facility] Work Phone: Comment on above: virtual, reported by pt 11-09-2021 11:18-0400 Body mass index (BMI) [Ratio] 37.63 kg/m2 Christy Sweeney [facility]; [facility] Work Phone: Comment on above: virtual, reported by pt 11-09-2021 11:18-0400 Body surface area Derived from formula 2.17 m2 Christy Sweeney P[place]; [facility] Work Phone: Comment on above: virtual, reported by pt 11-09-2021 11:18-0400 Body weight 108.18 kg Christy Sweeney [facility]; [facility] Work Phone: Comment on above: virtual, reported by pt 11-09-2021 11:18-0400 Diastolic blood pressure 82 mm[Hg] Christyroseline Sweeney [place]; [facility] Work Phone: Comment on above: Patient Position: Sitting; Cuff Location : Left Arm; Cuff Size: Standard virtual, reported by pt 11-09-2021 11:18-0400 SaO2% (BldA) [Mass fraction] 93 % Christy Sweeney [place]; [facility] Work Phone: Comment on above: Room air virtual, reported by pt 11-09-2021 11:18-0400 Systolic blood pressure 121 mm[Hg] Christy Sweeney [facility]; [facility] Work Phone: Comment on above: Patient Position: Sitting; Cuff Location : Left Arm; Cuff Size: Standard virtual, reported by pt 07-10-2021 09:10-0500 Body height 169.55 cm Allie Clarisa MON[place] [facility]; [facility] Work Phone: 07-10-2021 09:10-0500 Body mass index (BMI) [Ratio] 37.63 kg/m2 Allie Mckenna LPN [facility]; [facility] Work Phone: 07-10-2021 09:10-0500 Body surface area Derived from formula 2.17 m2 Allie Mckenna LPN [facility]; [facility] Work Phone: 07-10-2021 09:10-0500 Body temperature 97.4 [degF] Allie Mckenna LPN [facility]; [facility] Work Phone: 07-10-2021 09:10-0500 Body weight 108.18 kg Allie Mckenna LPN [facility]; [facility] Work Phone: 07-10-2021 09:10-0500 Diastolic blood pressure 78 mm[Hg] Allie Slarb [employer] [facility]; [facility] Work Phone: Comment on above: Patient Position: Sitting; Cuff Location : Left Arm; Cuff Size: Standard 07-10-2021 09:10-0500 Heart rate 80 /min Allie Slarb [employer] [facility]; [facility] Work Phone: Comment on above: Pattern: Regular 07-10-2021 09:10-0500 Respiratory rate 18 /min Allie Slarb [employer] [facility]; [facility] Work Phone: Comment on above: Pattern: Unlabored 07-10-2021 09:10-0500 SaO2% (BldA) [Mass fraction] 96 % Allie Slarb [employer] [facility]; [facility] Work Phone: Comment on above: Room air 07-10-2021 09:10-0500 Systolic blood pressure 124 mm[Hg] Allie Slarb [employer] [facility]; [facility] Work Phone: Comment on above: Patient Position: Sitting; Cuff Location : Left Arm; Cuff Size: Standard 08-19-2020 09:26-0500 BMI (Body Mass Index) 38.82 kg/m2 Godwin Dumont LPN [facility]; [facility] Work Phone: 08-19-2020 09:26-0500 Body weight 111.59 kg Godwin Dumont [facility]; [facility] Work Phone: 08-19-2020 09:26-0500 BSA (Body Surface Area) 2.2 m2 Godwin Dumont [employer] [facility]; [facility] Work Phone: 08-19-2020 09:26-0500 Height 169.55 cm Godwin Dumont [facility]; [facility] Work Phone: 06-04-2020 09:51-0500 BMI (Body Mass Index) 38.82 kg/m2 Juanita Gravius [facility] Work Phone: 06-04-2020 09:51-0500 BMI (Body Mass Index) 38.98 kg/m2 Skye Poon [facility] Work Phone: 06-04-2020 09:51-0500 Body Temperature 97.3 [degF] Juanita Crenshaw CMA Comprehensiv e [facility] Work Phone: Comment on above: Method: Infrared 06-04-2020 09:51-0500 Body weight 111.59 kg Juanita Crenshaw CMA [facility] Work Phone: 06-04-2020 09:51-0500 Body weight 112.04 kg Skye Poon [facility] Work Phone: 06-04-2020 09:51-0500 BP Diastolic 82 mm[Hg] Juanita Crenshaw CMA [facility] Work Phone: Comment on above: Patient Position: Sitting; Cuff Location : Left Arm; Cuff Size: Standard 06-04-2020 09:51-0500 BP Systolic 116 mm[Hg] Juanita Crenshaw CMA [facility] Work Phone: Comment on above: Patient Position: Sitting; Cuff Location : Left Arm; Cuff Size: Standard 06-04-2020 09:51-0500 BSA (Body Surface Area) 2.2 m2 Juanita Crenshaw CMA [facility] Work Phone: 06-04-2020 09:51-0500 BSA (Body Surface Area) 2.21 m2 Skye Poon [facility] Work Phone: 06-04-2020 09:51-0500 Height 169.55 cm Juanita Crenshaw CMA [facility] Work Phone: 06-04-2020 09:51-0500 Pulse (Heart Rate) 98 /min Juanita Crenshaw CMA Comprehens mar[facility] Work Phone: Comment on above: Pattern: Regular 06-04-2020 09:51-0500 Pulse Oximetry 95 % Skye Poon [facility] Work Phone: Comment on above: Room air 06-04-2020 09:51-0500 Respiratory Rate 18 /min Juanita Crenshaw CMA Comprehensiv e [facility] Work Phone: Comment on above: Pattern: Unlabored 06-04-2020 09:51-0500 SaO2% (BldA) [Mass fraction] 95 % Juanita Crenshaw [employer] [facility]; [facility] Work Phone: Comment on above: Room air 05-30-2020 09:53-0400 BMI (Body Mass Index) 38.98 kg/m2 Juanita Crenshaw [employer] [facility] Work Phone: 05-30-2020 09:53-0400 Body Temperature 98.3 [degF] Juanita Crenshaw CMA Comprehensiv e [facility] Work Phone: Comment on above: Method: Infrared 05-30-2020 09:53-0400 Body weight 112.04 kg Juanita Crenshaw CMA [facility] Work Phone: 05-30-2020 09:53-0400 BSA (Body Surface Area) 2.21 m2 Juanita Crenshaw [employer] [facility] Work Phone: 05-30-2020 09:53-0400 Height 169.55 cm Juanita Crenshaw [employer] [facility] Work Phone: 05-30-2020 09:53-0400 Pulse (Heart Rate) 105 /min Juanita Crenshaw CMA Comprehens [facility] Work Phone: Comment on above: Pattern: Regular 05-30-2020 09:53-0400 Pulse Oximetry 91 % Skye Poon [facility] Work Phone: Comment on above: Room air 05-30-2020 09:53-0400 Respiratory Rate 16 /min Juanita Crenshaw CMA Comprehensiv e [facility] Work Phone: Comment on above: Pattern: Unlabored 05-30-2020 09:53-0400 SaO2% (BldA) [Mass fraction] 91 % Juanita Crenshaw [employer] [facility]; [facility] Work Phone: Comment on above: Room air Encounters Encounter Date Encounter Type Care Provider Facility Start: 08-09-2024 End: 08-09-2024 [facility] DAVID [facility] Start: 07-31-2024 End: 07-31-2024 ambulatory SKYE DO AYAH [facility] Start: 07-03-2024 End: 07-03-2024 ambulatory SKYE DO AYAH [facility] Start: 06-27-2024 End: 06-27-2024 ambulatory KALEY Vaca [facility] Start: 06-19-2024 End: 06-19-2024 Emergency department patient visit Skye Poon Facility:[facility] Start: 06-12-2024 End: 06-12-2024 ambulatory [facility] Start: 06-04-2024 End: 06-04-2024 ambulatory SKYE DO AYAH [facility] Start: 05-31-2024 End: 05-31-2024 ambulatory Skye Poon Facility:[facility] Start: 09-26-2023 End: 09-26-2023 ambulatory Isis Yu Facility:[facility] Start: 09-23-2023 End: 09-23-2023 Emergency department patient visit DEVENDRA GR BRICE [facility] Start: 05-06-2023 End: 05-06-2023 Phone Encounter Skye Ayah DO Work Phone: [facility] Start: 02-22-2023 End: 02-22-2023 Office outpatient visit 15 minutes Skye Ayah DO Work Phone: [facility] Start: 10-25-2022 End: 10-25-2022 Office outpatient visit 25 minutes Skye Ayah DO Work Phone: [facility] Start: 10-25-2022 Review Skye Fearo n DO Work Phone: [facility] Start: 10-18-2022 ambulatory Skye Ayah DO [facility] Start: 10-04-2022 End: 10-04-2022 Office outpatient visit 15 minutes Skye Ayah DO Work Phone: [facility] Start: 09-27-2022 End: 09-27-2022 Office outpatient visit 15 minutes Skye Ayah DO Work Phone: [facility] Start: 09-27-2022 Review Skye Fearo n DO Work Phone: [facility] Start: 09-20-2022 End: 09-20-2022 Office outpatient visit 15 minutes Skye Ayah DO Work Phone: [facility] Start: 01-19-2022 End: 01-19-2022 Office outpatient visit 15 minutes Skye Ayah DO Work Phone: [facility] Start: 11-09-2021 End: 11-09-2021 Office outpatient visit 15 minutes Skye Ayah DO Work Phone: [facility] Start: 07-10-2021 End: 07-10-2021 Office outpatient visit 15 minutes Skye Ayah DO Work Phone: [facility] Start: 11-07-2020 End: 11-07-2020 Annotation/Addendum Skye Ayah [facility] Start: 10-06-2020 End: 10-06-2020 Annotation/Addendum Skye Ayah [facility] Start: 08-19-2020 End: 08-19-2020 Office outpatient visit 15 minutes Skye Ayah [facility] Start: 07-21-2020 End: 07-21-2020 Annotation/Addendum Skye Ayah [facility] Start: 07-17-2020 End: 07-17-2020 Office outpatient visit 5 minutes Skye Ayah [facility] Start: 07-16-2020 End: 07-16-2020 Phone Encounter Skye Ayah [facility] Start: 06-04-2020 End: 06-04-2020 Office outpatient visit 25 minutes Skye Ayah [facility] Start: 06-04-2020 Review Skye Ayah [facility] Start: 05-30-2020 End: 05-30-2020 Office outpatient new 30 minutes Skye Ayah [facility] Start: 05-30-2020 Review Skye Ayah [facility] Procedures Date Procedure Procedure Detail Performing Clinician Start: 11-21-2020 End: 11-21-2020 Venous Duplex US, Unilateral Comments: See Note; NOTES: [facility] [address] [place] [address] Venous Duplex US, Unilateral 11/21/20 0917 MR#: [id number] Acct: [id number] Name: INGRID VIERA Rep #: [id number] : 1970 50 From: Alexander Beckwith MD Attending Dr: Dr. Skye Poon, Status: R EG CLI Ordering Dr: Skye Poon DO Date: 11/21/20 Location: [facility] Sex: F C Admitted: Reason For Study: DVT RIGHT LEFT CFV is compressible, spontaneous, phasic, GSV is normal. competent and demonstrates normal CFV is compressible, spontaneous, phasic, augmentation. competent, and demonstrates normal Procedure augmentation. This is a venous duplex using B-mode, color FV is compressible, spontaneous, phasic, flow and spectral Doppler. competent and demonstrates normal The study was technically difficult. augmentation. Due to body habitus. POP V is compressible, spontaneous, phasic, A preliminary report was called and/or faxed competent and demonstrates normal to Dr. Poon @ [phone] @ 9:20 am. augmentation. T/P Trunk is compressible. PTV is compressible. LT PerV is compressible. VL/Venous Duplex US, Unilateral Interpretation Summary Deep veins of the left lower extremity are patent and compressible segmentally. There is no evidence of left lower extremity deep vein thrombosis. Valvular competence appears intact within the proximal deep venous system on the left . The left great saphenous vein appears patent and compressible segmentally. _ Ordering Physician: Skye Poon Referring Physician: Skye Poon Performed By: Maria Guadalupe Robles, SIS, RVT 11/21/20 1508 Date Alexander Beckwith MD CC: Dr. Skye Poon DO Date Dictated: 11/21/20916 Date Transcribed: 11/21/20 150 Aoc Director Intelligence Officer: Signed Skye Poon DO Work Phone: Start: 07-11-2020 End: 07-14-2020 Venous Duplex US - Laith Extrem Comments: See Note; NOTES: [facility] [address] [place] [address] Venous Duplex US - Laith Extrem 07/11/20816 MR#: [id number] Acct: [id number] Name: INGRID VIERA Rep #: [id number] : 1970 49 From: Alexander Beckwith MD Attending Dr: Dr. Skye Poon DO Status: R EG CLI Ordering Dr: Skye Poon DO Date: 07/11/20 Location: [facility] Sex: F C Admitted: Reason For Study: F/U DVT RIGHT LEFT GSV is normal. CFV is compressible, spontaneous, phasic, CFV is compressible, spontaneous, phasic, competent, and demonstrates normal competent and demonstrates normal augmentation. augmentation. FV is compressible, spontaneous, phasic, FV is compressible, spontaneous, phasic, competent and demonstrates normal competent and demonstrates normal augmentation. augmentation. POP V is compressible, spontaneous, phasic, POP V is compressible, spontaneous, phasic, competent and demonstrates normal competent and demonstrates normal augmentation. augmentation. T/P Trunk is compressible. T/P Trunk is compressible. PTV is compressible. PTV is compressible. LT PerV is compressible. RT PerV is compressible. Lt SoleusV is partially compressible with no flow Lt GSV was ablated three years ago Lt GSV at junction is partially compressible with bright intraluminal echoes consistent with chronic SVT Lt thigh and calf varicosities are partially compressible with bright intraluminal echoes consistent with chronic SVT. Interpretation Summary Acute deep vein thrombosis is noted in the left soleus vein. The remainder of the left lower extremity deep venous system is patent and compressible. Deep veins of the right lower extremity are patent and compressible segmentally. There is no evidence of right lower extremity deep vein thrombosis. Valvular competence appears intact within the proximal deep venous systems bilaterally. The right great saphenous vein appears patent and compressible segmentally. The left great saphenous vein has been previously ablated, though chronic changes are noted near the left sapheno-femoral junction. Chronic venous changes are noted in superficial varicosities in the left thigh and calf. _ Ordering Physician: Skye Poon Referring Physician: Skye Poon Performed By: Lashay Freeman, RDGALINA, RVT 07/14/201655 Date Alexander Beckwith MD CC: Dr. Skye Poon, Date Dictated: 07/11/20 08 Date Transcribed: 07/14/201655 Aoc Director Intelligence Officer: Demetria Poon Work Phone: Start: 05-30-2020 End: 05-30-2020 Emergency Department Summary Comments: See Note; NOTES: [facility] Medical Records Department [address] [place] [address] Emergency Department Summary 05/30/20 MR#: [id number] Acct: [id number] Name: INGRID VIERA Rep #: [id number] : 1970 49 From: Katerine ORTEGA PCP: Dr. Skye Poon, Status:DEP ER History of Present Illness Informant: Patient Onset: Weeks Narrative: 49-year-old female past medical history of asthma presents with complaints of dyspnea on exertion and leg pain. At the beginning of May she was positive for Covid 19. She states her symptoms improved except she still has dyspnea on exertion since her diagnosis. On 05/26/2020 she was diagnosed with left lower extremity DVT and started on Xarelto. That night she started having worsening leg pain up into her left thigh which has been persistent. Over the last few days she has midsternal chest tightness when taking deep breaths. Her PCP sent her to the ED to get a CTA. Patient denies chest pain now. She states her dyspnea on exertion is no worse than it has been over the last several weeks but it concerned her that it is not gone. She no longer has a fever or cough. No leg swelling or discoloration. <Katerine Carney - Last Filed: 05/30/20 13:17> <Lenin Tee - Last Filed: 05/30/20 14:39> Chief Complaint: Shortness of Breath Past Medical History Past Medical History: - - asthma, DVT <Katerine Carney - Last Filed: 05/30/20 13:17> <Lenin Tee - Last Filed: 05/30/20 14:39> - Allergies and Home Meds Allergies/Adverse Reactions: Allergies No Known Allergies Allergy (Verified 05/30/20 10:41) Primary Care Physician: Skye Poon DO [Primary Care Provider] - Review of Systems General: Denies: Chills, Fever, Sweats Eyes: Denies: Visual changes - bilaterally, Diplopia ENT: Denies: Rhinorrhea, Sore throat Cardiovascular: Denies: Chest pain, Palpitations Respiratory: Reports: Dyspnea on exertion. Denies: Dyspnea, Cough, Sputum, Orthopnea Gastrointestinal: Denies: Abdominal pain, Nausea, Vomiting, Diarrhea, Melena, Hematochezia Genitourinary: Denies: Dysuria, Hematuria, Frequency Musculoskeletal: Reports: Extremity Pain. Denies: Back pain Skin: Denies: Rash, Wounds Neurological: Denies: Headache, Weakness, Numbness <Katerine Carney - Last Filed: 05/30/20 13:17> Physical Exam Vital Signs/Narrative: Vital Signs Temp Pulse Resp BP Pulse Ox 05/30/20 10:42 97.7 F L 96 19 H 151/87 H 96 General: Well nourished, Well developed, No Acute Distress Head: Normocephalic, Atraumatic Eyes: Perrl, EOMI ENT: Moist mucous membranes, No rhinorrhea Neck: Supple, Nontender Cardiovascular: Regular rate, Regular rhythm, No murmurs Respiratory: No distress, CTA bilaterally, Chest nontender Back: Normal Inspection Extremities: No edema, Calf Tenderness, - - left calf tenderness in area of known DVT. No LE swelling. 2+ distal pulses Skin: Normal color, No rash Neurological: Alert, Oriented x3, Cranial nerves II-XII grossly intact Psychological: Normal affect, Normal Mood <Katerine Carney - Last Filed: 05/30/20 13:17> Vital Signs/Narrative: Vital Signs Temp Pulse Resp BP Pulse Ox 05/30/20 10:42 97.7 F L 96 19 H 151/87 H 96 <Lenin Tee - Last Filed: 05/30/20 14:39> Diagnostic/Tx/Re-eval Clinical Impression(s) from Imaging Studies Chest CTA 05/30/20 11:02 IMPRESSION: There is no evidence of a pulmonary embolism. Patchy infiltrates in both lungs as described above. This most likely represents pneumonic in nature. Radiographic follow-up is recommended. Electronically Signed: Quang Garner, at 13:11 EDT , Service support , Laboratory Data 05/30/20 05/30/20 11:25 11:25 WBC 6.5 RBC 3.96 L Hgb 13.1 Hct 38.4 MCV 97.0 MCH 33.1 H MCHC 34.1 RDW Std Deviation 46.7 H RDW Coeff of Ravinder 13.1 Plt Count 190 MPV 8.3 Immature Gran % (Auto) 0.300 Neut % (Auto) 72.4 H Lymph % (Auto) 19.0 Campbell % (Auto) 7.3 Eos % (Auto) 0.8 Baso % (Auto) 0.2 Absolute Neuts (auto) 4.7 Absolute Lymphs (auto) 1.23 Nucleated RBC % 0 Sodium 139 Potassium 3.8 Chloride 106 Carbon Dioxide 25.0 Anion Gap 8 BUN 8 Creatinine 0.73 Estim Creat Clear Calc 90.65 Est GFR (MDRD) Af Amer 108 Est GFR (MDRD) Non-Af 89 BUN/Creatinine Ratio 10.9 Glucose 101 Calcium 9.2 Troponin I < 0.015 - Rhythm Strip Rhythm Strip: Sinus Rhythm Rate: 83 Ectopy: None - Medical Decision Making Patient presented with dyspnea on exertion x1 months after diagnosis of COVID and worsening LLE pain after being diagnosed with DVT 1 week ago. She appears well and nontoxic. She is resting comfortably in no respiratory distress. Vital signs within normal limits. Normal cardiopulmonary exam. LLE calf is tender with palpable cord over area of known DVT. Labs are unremarkable. Troponin negative. EKG is normal sinus rhythm with no signs of ischemia. CTA was negative for PE but did show patchy infiltrates. This is most likely post Covid pneumonia. She be treated with doxycycline and follow- up with PCP. Return for worsening shortness of breath. She was agreeable and discharged home in stable condition. <Katerine Carney - Last Filed: 05/30/20 13:17> - Medical Decision Making The pen history and physical was obtained. Patient has a DVT left lower extremity and is on Xarelto. She states she is compliant. She presents because of increased shortness of breath. She denies hemoptysis. She was diagnosed earlier this month with COVID-19. Patient is tachypneic. She is not febrile nor is she hypoxic. Lungs reveal some scattered rales bilaterally. Heart is regular. Lower extremity reveals swelling and slight discoloration of left lower extremity consistent with DVT. Appropriate blood work obtained and CTA to evaluate for pulmonary embolus. <Lenin Tee - Last Filed: 05/30/20 14:39> ED Disposition <Katerine Carney - Last Filed: 05/30/20 13:17> <Lenin Tee - Last Filed: 05/30/20 14:39> - Plan for ED Patient: Disposition: Home or Assisted Living Diagnosis: Pneumonia due to COVID-19 virus, Bilateral patchy infiltrates, Dyspnea, Dyspnea due to COVID-19 Instructions: ED Upper Resp Infec Abx Tx Prescriptions: Doxycycline 100 mg PO BID #20 cap Prescription Printed Referrals: Skye Poon, DO [Primary Care Provider] - What to do if you have Problems For any increased pain, shortness of breath, bleeding, nausea or vomiting, chest pain, or any unexpected problems, contact your Primary Care Provider. Call [facility] ([phone]) or report to the closest Emergency Room. Call 911 if necessary. 05/30/20 1318 <Electronically signed by Katerine ORTEGA> Date Katerine ORTEGA 05/30/20 1440<Electronically signed by Lenin Tee MD> Cosigner Signature (If Indicated): Date Lenin Tee MD CC: DO Skye Damico Start: 05-30-2020 End: 06-03-2020 12 Lead EKG Comments: See Note; NOTES: [facility] Cardiovascular Services [address] [place] [address] 12 Lead EKG 05/30/20 1128 MR#: [id number] Acct: [id number] Name: INGRID VIERA Rep #: [id number] : 1970 49 From: iRver Dior MD Attending Dr: Status: DEP ER Ordering Dr: Katerine Carney Date: 05/30/20 Location: ED Sex: F C Admitted: Test Reason : Blood Pressure : / mmHG Vent. Rate : 083 BPM Atrial Rate : 083 BPM P-R Int : 156 ms QRS Dur : 080 ms QT Int : 370 ms P-R-T Axes : 024 032 009 degrees QTc Int : 434 ms Normal sinus rhythm Normal ECG Confirmed by RIVER DIOR MD ([id number]), technical writer and editor [employer] SY ([id number]) on 06/03/2020 11:13:01 AM Referred By: MILA Confirmed By:RIVER DIOR MD 06/03/20 1113 Date River Dior MD CC: JORDAN Carney; Dr. Skye Poon DO Signed Skye Poon Start: 05-30-2020 End: 05-30-2020 CTA Chest W/WO Contrast Comments: See Note; NOTES: [facility] Imaging Services [address] [place] [address] CTA Chest W/WO Contrast MR#: [id number] Acct: [id number] Name: INGRID VIERA Rep #: [id number] : 1970 F 49 From: Quang shields MD PCP: Dr. Skye Poon DO Status: PRE ER Study: CTA Chest W/WO Contrast Date of Exam: 05/30/20 Exam# [id number] Ordering Dr: Katerine Carney STUDY: CTA CHEST REASON FOR EXAM: Female, 49 years old. PE,CHEST PAIN, SOB ON EXCERTION, DVT RADIATION DOSAGE (If Supplied By Facility): CTDIvol = ( 12.48 ) mGy, DLP = ( 462.59 ) mGycm TECHNIQUE: The examination was performed with the intravenous administration of IV 100mL Isovue-370. Post-processing of the angiographic images was performed, with multiplanar reformation and 3D reconstruction. Individualized dose optimization techniques were used for this CT. COMPARISON: None. FINDINGS: Normal enhancement of the main pulmonary artery and right and left pulmonary arteries. Normal enhancement of the bilateral peripheral pulmonary arteries. There is no demonstrated pulmonary embolism. Normal thoracic aorta and visualized great vessels. There is no demonstrated aortic dissection. Normal heart and pericardium. Normal mediastinum. Normal hilar regions. Normal visualized trachea and bronchi. The lungs are well expanded. 51.8 cm x 1.4 cm irregular nodular density along the peripheral posterior aspect of the right upper lobe. An irregular nodular density measuring 1.2 cm x 1.1 cm is also seen along the lateral aspect of the posterior left upper lobe. This also evidence of a nondiscrete infiltrates in both lower lobes. Findings are suggestive of a patchy bilateral pulmonary infiltrates. Radiographic follow-up is recommended. Normal pleura. Normal chest wall structures. Normal osseous structures. Normal visualized upper abdomen. CT/CTA Chest W/WO Contrast IMPRESSION: There is no evidence of a pulmonary embolism. Patchy infiltrates in both lungs as described above. This most likely represents pneumonic in nature. Radiographic follow-up is recommended. Electronically Signed: Quang Patsy, at 13:11 EDT , Service support , CC: JORDAN Carney; Dr. Skye Poon, Aoc Director Intelligence Officer: Signed Skye Poon Plan of Treatment Date Care Activity Detail Author Start: 02-22-2023 Procedure Education Eprescribed prescriptions (G8553) [facility]; [facility] Work Phone: Start: 02-22-2023 Provider Instructions for Treatment Follow up if no improvement or if symptoms worsen [facility]; [facility] Work Phone: Start: 10-25-2022 Procedure Education Eprescribed prescriptions (G8553) [facility]; [facility] Work Phone: Start: 10-04-2022 Provider Instructions for Treatment [facility]; [facility] Work Phone: Start: 09-27-2022 Procedure Education Eprescribed prescriptions (G8553) [facility]; [facility] Work Phone: Start: 09-27-2022 Provider Instructions for Treatment [facility]; [facility] Work Phone: Start: 09-20-2022 Procedure Education Eprescribed prescriptions (G8553) [facility]; [facility] Work Phone: Start: 09-20-2022 Provider Instructions for Treatment [facility]; [facility] Work Phone: Start: 01-19-2022 Procedure Education Eprescribed prescriptions (G8553) [facility]; [facility] Work Phone: Start: 01-19-2022 Culture bct isol&prsmptv id isolate ea urine URINE TRA CULTURE-IDENTIFICATN ([id number]) [facility]; [facility] Work Phone: Start: 11-09-2021 Procedure Education Eprescribed prescriptions (G8553) [facility]; [facility] Work Phone: Start: 11-09-2021 Provider Instructions for Treatment [facility]; [facility] Work Phone: Start: 07-10-2021 Procedure Education Eprescribed prescriptions (G8553) [facility]; [facility] Work Phone: Start: 08-19-2020 Procedure Education Eprescribed prescriptions (G8553) [facility]; [facility] Work Phone: Start: 06-04-2020 Procedure Education Eprescribed prescriptions (G8553) [facility] Work Phone: Start: 06-04-2020 Provider Instructions for Treatment [facility] Work Phone: Start: 05-30-2020 Procedure Education Eprescribed prescriptions (G8553) [facility] Work Phone: [facility] Work Phone: [facility] Work Phone: [facility] Work Phone: [facility]; [facility] Work Phone[facility]; [facility] Work Phone: [facility]; [facility] Work Phone: [facility]; [facility] Work Phone: Payers Date Payer Category Payer Unknown [id number] 2023 Self-pay 1970 Unknown [id number] 2.16.8 [id number] 1970 Unknown [id number] 2.16.8 [id number] 1970 Unknown [id number] 2.16.8 [id number] 1970 Unknown [id number] 2.16.8 [id number] 1970 Unknown [id number] 2.16.8 [id number] 1970 Unknown [id number] 2.16.8 [id number] Unknown [id number] 2.16.8 [id number] Unknown [id number] 2.16.8 [id number] Unknown [id number] 2.16.8 [id number] Unknown Unknown 5 Social History Date Type Detail Facility Caffeine Use Caffeine Use [facility] Work Phone: Comment on above: 1cup Clinical Notes Note Date & Type Note Facility Instructions Name Patient Instructions Indication:Non-smoker Start: 1 Instruction Type:Provider Instructions for Treatment How to Access Health Information Online using Patient Portal and 3rd [employer] Apps Indication:Non-smoker Start: 1 Instruction Type:Patient Education How to access health information online Indication:Non-smoker Start:04-Jun-2020 Instruction Type:Patient Education How to access health information online - Detail Indication:Non-smoker Start:04-Jun-2020 Instruction Type:Patient Education Patient Instructions Indication:Non-smoker Start:04-Jun-2020 Instruction Type:Provider Instructions for Treatment How to access health information online Indication:Non-smoker Start: 0 Instruction Type:Patient Education How to access health information online - Detail Indication:Non-smoker Start: 0 Instruction Type:Patient Education Patient Instructions Indication:Non-smoker Start: 0 Instruction Type:Provider Instructions for Treatment [facility]; [facility] Work Phone: Instructions* Name Dates Details Patient Instructions Indication:Non-smoker Start:10-Jul-2021 Instruction Type:Provider Instructions for Treatment How to Access Health Informa tion Online using Patient Portal and 3rd [employer] Apps Indication:Non-smoker Start:10-Jul-2021 Instruction Type:Patient Education Patient Instructions Indication:Non-smoker Start:19-Aug-2020 Instruction Type:Provider Instructions for Treatment How to Access Health Informa tion Online using Patient Portal and 3rd [employer] Apps Indication:Non-smoker Start:19-Aug-2020 Instruction Type:Patient Education How to access health informa tion online Indication:Non-smoker Start:04-Jun-2020 Instruction Type:Patient Education How to access health informa tion online - Detail Indication:Non-smoker Start:04-Jun-2020 Instruction Type:Patient Education Patient Instructions Indication:Non-smoker Start:04-Jun-2020 Instruction Type:Provider Instructions for Treatment How to access health informa tion online Indication:Non-smoker Start:30-May-2020 Instruction Type:Patient Education How to access health informa tion online - Detail Indication:Non-smoker Start:30-May-2020 Instruction Type:Patient Education Patient Instructions Indication:Non-smoker Start:30-May-2020 Instruction Type:Provider Instructions for Treatment [facility]; [facility] Work Phone: instructions* Name Dates Details Patient Instructions Indication:BMI 37.0-37.9, adult Start:09-Nov-2021 Instruction Type:Provider Instructions for Treatment How to Access Health Informa tion Online using Patient Portal and 3rd [employer] Apps Indication:BMI 37.0-37.9, adult Start:09-Nov-2021 Instruction Type:Patient Education Patient Instructions Indication:Non-smoker Start:10-Jul-2021 Instruction Type:Provider Instructions for Treatment How to Access Health Informa tion Online using Patient Portal and 3rd [employer] Apps Indication:Non-smoker Start:10-Jul-2021 Instruction Type:Patient Education Patient Instructions Indication:Non-smoker Start:19-Aug-2020 Instruction Type:Provider Instructions for Treatment How to Access Health Informa tion Online using Patient Portal and [employer] Indication:Non-smoker Start:19-Aug-2020 Instruction Type:Patient Education How to access health informa tion online Indication:Non-smoker Start:04-Jun-2020 Instruction Type:Patient Education How to access health informa tion online - Detail Indication:Non-smoker Start:04-Jun-2020 Instruction Type:Patient Education Patient Instructions Indication:Non-smoker Start:04-Jun-2020 Instruction Type:Provider Instructions for Treatment How to access health informa tion online Indication:Non-smoker Start:30-May-2020 Instruction Type:Patient Education How to access health informa tion online - Detail Indication:Non-smoker Start:30-May-2020 Instruction Type:Patient Education Patient Instructions Indication:Non-smoker Start:30-May-2020 Instruction Type:Provider Instructions for Treatment [facility]; [facility] Work Phone: Instructions* Name Dates Details Patient Instructions Indication:BMI 39.0-39.9,adult Start:19-Jan-2022 Instruction Type:Provider Instructions for Treatment How to Access Health Informa tion Online using Patient Portal and [employer] Indication:BMI 39.0-39.9,adult Start:19-Jan-2022 Instruction Type:Patient Education Patient Instructions Indication:BMI 37.0-37.9, adult Start:09-Nov-2021 Instruction Type:Provider Instructions for Treatment How to Access Health Informa tion Online using Patient Portal and [employer] Indication:BMI 37.0-37.9, adult Start:09-Nov-2021 Instruction Type:Patient Education Patient Instructions Indication:Non-smoker Start:10-Jul-2021 Instruction Type:Provider Instructions for Treatment How to Access Health Informa tion Online using Patient Portal and [employer] Indication:Non-smoker Start:10-Jul-2021 Instruction Type:Patient Education Patient Instructions Indication:Non-smoker Start:19-Aug-2020 Instruction Type:Provider Instructions for Treatment How to Access Health Informa tion Online using Patient Portal and [employer] Indication:Non-smoker Start:19-Aug-2020 Instruction Type:Patient Education How to access health informa tion online Indication:Non-smoker Start:04-Jun-2020 Instruction Type:Patient Education How to access health informa tion online - Detail Indication:Non-smoker Start:04-Jun-2020 Instruction Type:Patient Education Patient Instructions Indication:Non-smoker Start:04-Jun-2020 Instruction Type:Provider Instructions for Treatment How to access health informa tion online Indication:Non-smoker Start:30-May-2020 Instruction Type:Patient Education How to access health informa tion online - Detail Indication:Non-smoker Start:30-May-2020 Instruction Type:Patient Education Patient Instructions Indication:Non-smoker Start:30-May-2020 Instruction Type:Provider Instructions for Treatment [facility]; [facility] Work Phone: Instructions* Name Dates Details Patient Instructions Indication:BMI 39.0-39.9,adult Start:19-Jan-2022 Instruction Type:Provider Instructions for Treatment How to Access Health Informa tion Online using Patient Portal and [employer] Indication:BMI 39.0-39.9,adult Start:19-Jan-2022 Instruction Type:Patient Education Patient Instructions Indication:BMI 37.0-37.9, adult Start:09-Nov-2021 Instruction Type:Provider Instructions for Treatment How to Access Health Informa tion Online using Patient Portal and [employer] Indication:BMI 37.0-37.9, adult Start:09-Nov-2021 Instruction Type:Patient Education Patient Instructions Indication:Non-smoker Start:10-Jul-2021 Instruction Type:Provider Instructions for Treatment How to Access Health Informa tion Online using Patient Portal and [employer] Indication:Non-smoker Start:10-Jul-2021 Instruction Type:Patient Education Patient Instructions Indication:Non-smoker Start:19-Aug-2020 Instruction Type:Provider Instructions for Treatment How to Access Health Informa tion Online using Patient Portal and [employer] Indication:Non-smoker Start:19-Aug-2020 Instruction Type:Patient Education How to access health informa tion online Indication:Non-smoker Start:04-Jun-2020 Instruction Type:Patient Education How to access health informa tion online - Detail Indication:Non-smoker Start:04-Jun-2020 Instruction Type:Patient Education Patient Instructions Indication:Non-smoker Start:04-Jun-2020 Instruction Type:Provider Instructions for Treatment How to access health informa tion online Indication:Non-smoker Start:30-May-2020 Instruction Type:Patient Education How to access health informa tion online - Detail Indication:Non-smoker Start:30-May-2020 Instruction Type:Patient Education Patient Instructions Indication:Non-smoker Start:30-May-2020 Instruction Type:Provider Instructions for Treatment [facility]; [facility] Work Phone: Instructions* Name Dates Details Patient Instructions Indication:Non-smoker Start:20-Sep-2022 Instruction Type:Provider Instructions for Treatment How to Access Health Informa tion Online using Patient Portal and [employer] Indication:Non-smoker Start:20-Sep-2022 Instruction Type:Patient Education Patient Instructions Indication:BMI 39.0-39.9,adult Start:19-Jan-2022 Instruction Type:Provider Instructions for Treatment How to Access Health Informa tion Online using Patient Portal and [employer] Indication:BMI 39.0-39.9,adult Start:19-Jan-2022 Instruction Type:Patient Education Patient Instructions Indication:BMI 37.0-37.9, adult Start:09-Nov-2021 Instruction Type:Provider Instructions for Treatment How to Access Health Informa tion Online using Patient Portal and [employer] Indication:BMI 37.0-37.9, adult Start:09-Nov-2021 Instruction Type:Patient Education Patient Instructions Indication:Non-smoker Start:10-Jul-2021 Instruction Type:Provider Instructions for Treatment How to Access Health Informa tion Online using Patient Portal and [employer] Indication:Non-smoker Start:10-Jul-2021 Instruction Type:Patient Education Patient Instructions Indication:Non-smoker Start:19-Aug-2020 Instruction Type:Provider Instructions for Treatment How to Access Health Informa tion Online using Patient Portal and [employer] Indication:Non-smoker Start:19-Aug-2020 Instruction Type:Patient Education How to access health informa tion online Indication:Non-smoker Start:04-Jun-2020 Instruction Type:Patient Education How to access health informa tion online - Detail Indication:Non-smoker Start:04-Jun-2020 Instruction Type:Patient Education Patient Instructions Indication:Non-smoker Start:04-Jun-2020 Instruction Type:Provider Instructions for Treatment How to access health informa tion online Indication:Non-smoker Start:30-May-2020 Instruction Type:Patient Education How to access health informa tion online - Detail Indication:Non-smoker Start:30-May-2020 Instruction Type:Patient Education Patient Instructions Indication:Non-smoker Start:30-May-2020 Instruction Type:Provider Instructions for Treatment [facility]; [facility] Work Phone: Instructions* Name Dates Details Patient Instructions Indication:BMI 40.0-44.9, adult Start:27-Sep-2022 Instruction Type:Provider Instructions for Treatment How to Access Health Informa tion Online using Patient Portal and [employer] Indication:BMI 40.0-44.9, adult Start:27-Sep-2022 Instruction Type:Patient Education Patient Instructions Indication:Non-smoker Start:20-Sep-2022 Instruction Type:Provider Instructions for Treatment How to Access Health Informa tion Online using Patient Portal and [employer] Indication:Non-smoker Start:20-Sep-2022 Instruction Type:Patient Education Patient Instructions Indication:BMI 39.0-39.9,adult Start:19-Jan-2022 Instruction Type:Provider Instructions for Treatment How to Access Health Informa tion Online using Patient Portal and [employer] Indication:BMI 39.0-39.9,adult Start:19-Jan-2022 Instruction Type:Patient Education Patient Instructions Indication:BMI 37.0-37.9, adult Start:09-Nov-2021 Instruction Type:Provider Instructions for Treatment How to Access Health Informa tion Online using Patient Portal and [employer] Indication:BMI 37.0-37.9, adult Start:09-Nov-2021 Instruction Type:Patient Education Patient Instructions Indication:Non-smoker Start:10-Jul-2021 Instruction Type:Provider Instructions for Treatment How to Access Health Informa tion Online using Patient Portal and [employer] Indication:Non-smoker Start:10-Jul-2021 Instruction Type:Patient Education Patient Instructions Indication:Non-smoker Start:19-Aug-2020 Instruction Type:Provider Instructions for Treatment How to Access Health Informa tion Online using Patient Portal and [employer] Indication:Non-smoker Start:19-Aug-2020 Instruction Type:Patient Education How to access health informa tion online Indication:Non-smoker Start:04-Jun-2020 Instruction Type:Patient Education How to access health informa tion online - Detail Indication:Non-smoker Start:04-Jun-2020 Instruction Type:Patient Education Patient Instructions Indication:Non-smoker Start:04-Jun-2020 Instruction Type:Provider Instructions for Treatment How to access health informa tion online Indication:Non-smoker Start:30-May-2020 Instruction Type:Patient Education How to access health informa tion online - Detail Indication:Non-smoker Start:30-May-2020 Instruction Type:Patient Education Patient Instructions Indication:Non-smoker Start:30-May-2020 Instruction Type:Provider Instructions for Treatment [facility]; [facility] Work Phone: Instructions* Name Dates Details Patient Instructions Indication:BMI 40.0-44.9, adult Start:27-Sep-2022 Instruction Type:Provider Instructions for Treatment How to Access Health Informa tion Online using Patient Portal and [employer] Indication:BMI 40.0-44.9, adult Start:27-Sep-2022 Instruction Type:Patient Education Patient Instructions Indication:Non-smoker Start:20-Sep-2022 Instruction Type:Provider Instructions for Treatment How to Access Health Informa tion Online using Patient Portal and [employer] Indication:Non-smoker Start:20-Sep-2022 Instruction Type:Patient Education Patient Instructions Indication:BMI 39.0-39.9,adult Start:19-Jan-2022 Instruction Type:Provider Instructions for Treatment How to Access Health Informa tion Online using Patient Portal and [employer] Indication:BMI 39.0-39.9,adult Start:19-Jan-2022 Instruction Type:Patient Education Patient Instructions Indication:BMI 37.0-37.9, adult Start:09-Nov-2021 Instruction Type:Provider Instructions for Treatment How to Access Health Informa tion Online using Patient Portal and [employer] Indication:BMI 37.0-37.9, adult Start:09-Nov-2021 Instruction Type:Patient Education Patient Instructions Indication:Non-smoker Start:10-Jul-2021 Instruction Type:Provider Instructions for Treatment How to Access Health Informa tion Online using Patient Portal and [employer] Indication:Non-smoker Start:10-Jul-2021 Instruction Type:Patient Education Patient Instructions Indication:Non-smoker Start:19-Aug-2020 Instruction Type:Provider Instructions for Treatment How to Access Health Informa tion Online using Patient Portal and [employer] Indication:Non-smoker Start:19-Aug-2020 Instruction Type:Patient Education How to access health informa tion online Indication:Non-smoker Start:04-Jun-2020 Instruction Type:Patient Education How to access health informa tion online - Detail Indication:Non-smoker Start:04-Jun-2020 Instruction Type:Patient Education Patient Instructions Indication:Non-smoker Start:04-Jun-2020 Instruction Type:Provider Instructions for Treatment How to access health informa tion online Indication:Non-smoker Start:30-May-2020 Instruction Type:Patient Education How to access health informa tion online - Detail Indication:Non-smoker Start:30-May-2020 Instruction Type:Patient Education Patient Instructions Indication:Non-smoker Start:30-May-2020 Instruction Type:Provider Instructions for Treatment [facility]; [facility] Work Phone: Instructions* Name Dates Details Patient Instructions Indication:Pneumonia, bacterial Start:04-Oct-2022 Instruction Type:Provider Instructions for Treatment How to Access Health Informa tion Online using Patient Portal and [employer] Indication:Pneumonia, bacterial Start:04-Oct-2022 Instruction Type:Patient Education Patient Instructions Indication:BMI 40.0-44.9, adult Start:27-Sep-2022 Instruction Type:Provider Instructions for Treatment How to Access Health Informa tion Online using Patient Portal and [employer] Indication:BMI 40.0-44.9, adult Start:27-Sep-2022 Instruction Type:Patient Education Patient Instructions Indication:Non-smoker Start:20-Sep-2022 Instruction Type:Provider Instructions for Treatment How to Access Health Informa tion Online using Patient Portal and [employer] Indication:Non-smoker Start:20-Sep-2022 Instruction Type:Patient Education Patient Instructions Indication:BMI 39.0-39.9,adult Start:19-Jan-2022 Instruction Type:Provider Instructions for Treatment How to Access Health Informa tion Online using Patient Portal and [employer] Indication:BMI 39.0-39.9,adult Start:19-Jan-2022 Instruction Type:Patient Education Patient Instructions Indication:BMI 37.0-37.9, adult Start:09-Nov-2021 Instruction Type:Provider Instructions for Treatment How to Access Health Informa tion Online using Patient Portal and [employer] Indication:BMI 37.0-37.9, adult Start:09-Nov-2021 Instruction Type:Patient Education Patient Instructions Indication:Non-smoker Start:10-Jul-2021 Instruction Type:Provider Instructions for Treatment How to Access Health Informa tion Online using Patient Portal and [employer] Indication:Non-smoker Start:10-Jul-2021 Instruction Type:Patient Education Patient Instructions Indication:Non-smoker Start:19-Aug-2020 Instruction Type:Provider Instructions for Treatment How to Access Health Informa tion Online using Patient Portal and [employer] Indication:Non-smoker Start:19-Aug-2020 Instruction Type:Patient Education How to access health informa tion online Indication:Non-smoker Start:04-Jun-2020 Instruction Type:Patient Education How to access health informa tion online - Detail Indication:Non-smoker Start:04-Jun-2020 Instruction Type:Patient Education Patient Instructions Indication:Non-smoker Start:04-Jun-2020 Instruction Type:Provider Instructions for Treatment How to access health informa tion online Indication:Non-smoker Start:30-May-2020 Instruction Type:Patient Education How to access health informa tion online - Detail Indication:Non-smoker Start:30-May-2020 Instruction Type:Patient Education Patient Instructions Indication:Non-smoker Start:30-May-2020 Instruction Type:Provider Instructions for Treatment [facility]; [facility] Work Phone: Instructions* Name Dates Details Patient Instructions Indication:BMI 40.0-44.9, adult Start:25-Oct-2022 Instruction Type:Provider Instructions for Treatment How to Access Health Informa tion Online using Patient Portal and [employer] Indication:BMI 40.0-44.9, adult Start:25-Oct-2022 Instruction Type:Patient Education Patient Instructions Indication:Pneumonia, bacterial Start:04-Oct-2022 Instruction Type:Provider Instructions for Treatment How to Access Health Informa tion Online using Patient Portal and [employer] Indication:Pneumonia, bacterial Start:04-Oct-2022 Instruction Type:Patient Education Patient Instructions Indication:BMI 40.0-44.9, adult Start:27-Sep-2022 Instruction Type:Provider Instructions for Treatment How to Access Health Informa tion Online using Patient Portal and [employer] Indication:BMI 40.0-44.9, adult Start:27-Sep-2022 Instruction Type:Patient Education Patient Instructions Indication:Non-smoker Start:20-Sep-2022 Instruction Type:Provider Instructions for Treatment How to Access Health Informa tion Online using Patient Portal and [employer] Indication:Non-smoker Start:20-Sep-2022 Instruction Type:Patient Education Patient Instructions Indication:BMI 39.0-39.9,adult Start:19-Jan-2022 Instruction Type:Provider Instructions for Treatment How to Access Health Informa tion Online using Patient Portal and [employer] Indication:BMI 39.0-39.9,adult Start:19-Jan-2022 Instruction Type:Patient Education Patient Instructions Indication:BMI 37.0-37.9, adult Start:09-Nov-2021 Instruction Type:Provider Instructions for Treatment How to Access Health Informa tion Online using Patient Portal and [employer] Indication:BMI 37.0-37.9, adult Start:09-Nov-2021 Instruction Type:Patient Education Patient Instructions Indication:Non-smoker Start:10-Jul-2021 Instruction Type:Provider Instructions for Treatment How to Access Health Informa tion Online using Patient Portal and [employer] Indication:Non-smoker Start:10-Jul-2021 Instruction Type:Patient Education Patient Instructions Indication:Non-smoker Start:19-Aug-2020 Instruction Type:Provider Instructions for Treatment How to Access Health Informa tion Online using Patient Portal and [employer] Indication:Non-smoker Start:19-Aug-2020 Instruction Type:Patient Education How to access health informa tion online Indication:Non-smoker Start:04-Jun-2020 Instruction Type:Patient Education How to access health informa tion online - Detail Indication:Non-smoker Start:04-Jun-2020 Instruction Type:Patient Education Patient Instructions Indication:Non-smoker Start:04-Jun-2020 Instruction Type:Provider Instructions for Treatment How to access health informa tion online Indication:Non-smoker Start:30-May-2020 Instruction Type:Patient Education How to access health informa tion online - Detail Indication:Non-smoker Start:30-May-2020 Instruction Type:Patient Education Patient Instructions Indication:Non-smoker Start:30-May-2020 Instruction Type:Provider Instructions for Treatment [facility]; [facility] Work Phone: Instructions* Name Dates Details Patient Instructions Indication:BMI 40.0-44.9, adult Start:25-Oct-2022 Instruction Type:Provider Instructions for Treatment How to Access Health Informa tion Online using Patient Portal and [employer] Indication:BMI 40.0-44.9, adult Start:25-Oct-2022 Instruction Type:Patient Education Patient Instructions Indication:Pneumonia, bacterial Start:04-Oct-2022 Instruction Type:Provider Instructions for Treatment How to Access Health Informa tion Online using Patient Portal and [employer] Indication:Pneumonia, bacterial Start:04-Oct-2022 Instruction Type:Patient Education Patient Instructions Indication:BMI 40.0-44.9, adult Start:27-Sep-2022 Instruction Type:Provider Instructions for Treatment How to Access Health Informa tion Online using Patient Portal and [employer] Indication:BMI 40.0-44.9, adult Start:27-Sep-2022 Instruction Type:Patient Education Patient Instructions Indication:Non-smoker Start:20-Sep-2022 Instruction Type:Provider Instructions for Treatment How to Access Health Informa tion Online using Patient Portal and [employer] Indication:Non-smoker Start:20-Sep-2022 Instruction Type:Patient Education Patient Instructions Indication:BMI 39.0-39.9,adult Start:19-Jan-2022 Instruction Type:Provider Instructions for Treatment How to Access Health Informa tion Online using Patient Portal and [employer] Indication:BMI 39.0-39.9,adult Start:19-Jan-2022 Instruction Type:Patient Education Patient Instructions Indication:BMI 37.0-37.9, adult Start:09-Nov-2021 Instruction Type:Provider Instructions for Treatment How to Access Health Informa tion Online using Patient Portal and [employer] Indication:BMI 37.0-37.9, adult Start:09-Nov-2021 Instruction Type:Patient Education Patient Instructions Indication:Non-smoker Start:10-Jul-2021 Instruction Type:Provider Instructions for Treatment How to Access Health Informa tion Online using Patient Portal and [employer] Indication:Non-smoker Start:10-Jul-2021 Instruction Type:Patient Education Patient Instructions Indication:Non-smoker Start:19-Aug-2020 Instruction Type:Provider Instructions for Treatment How to Access Health Informa tion Online using Patient Portal and [employer] Indication:Non-smoker Start:19-Aug-2020 Instruction Type:Patient Education How to access health informa tion online Indication:Non-smoker Start:04-Jun-2020 Instruction Type:Patient Education How to access health informa tion online - Detail Indication:Non-smoker Start:04-Jun-2020 Instruction Type:Patient Education Patient Instructions Indication:Non-smoker Start:04-Jun-2020 Instruction Type:Provider Instructions for Treatment How to access health informa tion online Indication:Non-smoker Start:30-May-2020 Instruction Type:Patient Education How to access health informa tion online - Detail Indication:Non-smoker Start:30-May-2020 Instruction Type:Patient Education Patient Instructions Indication:Non-smoker Start:30-May-2020 Instruction Type:Provider Instructions for Treatment [facility]; [facility] Work Phone: Instructions* Name Dates Details Patient Instructions Indication:BMI 40.0-44.9, adult Start:22-Feb-2023 Instruction Type:Provider Instructions for Treatment How to Access Health Informa tion Online using Patient Portal and [employer] Indication:BMI 40.0-44.9, adult Start:22-Feb-2023 Instruction Type:Patient Education Patient Instructions Indication:BMI 40.0-44.9, adult Start:25-Oct-2022 Instruction Type:Provider Instructions for Treatment How to Access Health Informa tion Online using Patient Portal and [employer] Indication:BMI 40.0-44.9, adult Start:25-Oct-2022 Instruction Type:Patient Education Patient Instructions Indication:Pneumonia, bacterial Start:04-Oct-2022 Instruction Type:Provider Instructions for Treatment How to Access Health Informa tion Online using Patient Portal and [employer] Indication:Pneumonia, bacterial Start:04-Oct-2022 Instruction Type:Patient Education Patient Instructions Indication:BMI 40.0-44.9, adult Start:27-Sep-2022 Instruction Type:Provider Instructions for Treatment How to Access Health Informa tion Online using Patient Portal and [employer] Indication:BMI 40.0-44.9, adult Start:27-Sep-2022 Instruction Type:Patient Education Patient Instructions Indication:Non-smoker Start:20-Sep-2022 Instruction Type:Provider Instructions for Treatment How to Access Health Informa tion Online using Patient Portal and [employer] Indication:Non-smoker Start:20-Sep-2022 Instruction Type:Patient Education Patient Instructions Indication:BMI 39.0-39.9,adult Start:19-Jan-2022 Instruction Type:Provider Instructions for Treatment How to Access Health Informa tion Online using Patient Portal and [employer] Indication:BMI 39.0-39.9,adult Start:19-Jan-2022 Instruction Type:Patient Education Patient Instructions Indication:BMI 37.0-37.9, adult Start:09-Nov-2021 Instruction Type:Provider Instructions for Treatment How to Access Health Informa tion Online using Patient Portal and [employer] Indication:BMI 37.0-37.9, adult Start:09-Nov-2021 Instruction Type:Patient Education Patient Instructions Indication:Non-smoker Start:10-Jul-2021 Instruction Type:Provider Instructions for Treatment How to Access Health Informa tion Online using Patient Portal and [employer] Indication:Non-smoker Start:10-Jul-2021 Instruction Type:Patient Education Patient Instructions Indication:Non-smoker Start:19-Aug-2020 Instruction Type:Provider Instructions for Treatment How to Access Health Informa tion Online using Patient Portal and [employer]rd [employer] Apps Indication:Non-smoker Start:19-Aug-2020 Instruction Type:Patient Education How to access health informa tion online Indication:Non-smoker Start:04-Jun-2020 Instruction Type:Patient Education How to access health informa tion online - Detail Indication:Non-smoker Start:04-Jun-2020 Instruction Type:Patient Education Patient Instructions Indication:Non-smoker Start:04-Jun-2020 Instruction Type:Provider Instructions for Treatment How to access health informa tion online Indication:Non-smoker Start:30-May-2020 Instruction Type:Patient Education How to access health informa tion online - Detail Indication:Non-smoker Start:30-May-2020 Instruction Type:Patient Education Patient Instructions Indication:Non-smoker Start:30-May-2020 Instruction Type:Provider Instructions for Treatment [facility]; [facility] Work Phone: Instructions Name Dates Details How to access health informa tion online Indication:Non-smoker Start:30-May-2020 Instruction Type:Patient Education How to access health informa tion online - Detail Indication:Non-smoker Start:30-May-2020 Instruction Type:Patient Education Patient Instructions Indication:Non-smoker Start:30-May-2020 Instruction Type:Provider Instructions for Treatment Name Dates Details How to access health informa tion online Indication:Non-smoker Start:30-May-2020 Instruction Type:Patient Education How to access health informa tion online - Detail Indication:Non-smoker Start:30-May-2020 Instruction Type:Patient Education Patient Instructions Indication:Non-smoker Start:30-May-2020 Instruction Type:Provider Instructions for Treatment Name Dates Details How to access health informa tion online Indication:Non-smoker Start:04-Jun-2020 Instruction Type:Patient Education How to access health informa tion online - Detail Indication:Non-smoker Start:04-Jun-2020 Instruction Type:Patient Education Patient Instructions Indication:Non-smoker Start:04-Jun-2020 Instruction Type:Provider Instructions for Treatment How to access health informa tion online Indication:Non-smoker Start:30-May-2020 Instruction Type:Patient Education How to access health informa tion online - Detail Indication:Non-smoker Start:30-May-2020 Instruction Type:Patient Education Patient Instructions Indication:Non-smoker Start:30-May-2020 Instruction Type:Provider Instructions for Treatment Name Dates Details How to access health informa tion online Indication:Non-smoker Start:04-Jun-2020 Instruction Type:Patient Education How to access health informa tion online - Detail Indication:Non-smoker Start:04-Jun-2020 Instruction Type:Patient Education Patient Instructions Indication:Non-smoker Start:04-Jun-2020 Instruction Type:Provider Instructions for Treatment How to access health informa tion online Indication:Non-smoker Start:30-May-2020 Instruction Type:Patient Education How to access health informa tion online - Detail Indication:Non-smoker Start:30-May-2020 Instruction Type:Patient Education Patient Instructions Indication:Non-smoker Start:30-May-2020 Instruction Type:Provider Instructions for Treatment Name Dates Details How to access health informa tion online Indication:Non-smoker Start:04-Jun-2020 Instruction Type:Patient Education How to access health informa tion online - Detail Indication:Non-smoker Start:04-Jun-2020 Instruction Type:Patient Education Patient Instructions Indication:Non-smoker Start:04-Jun-2020 Instruction Type:Provider Instructions for Treatment How to access health informa tion online Indication:Non-smoker Start:30-May-2020 Instruction Type:Patient Education How to access health informa tion online - Detail Indication:Non-smoker Start:30-May-2020 Instruction Type:Patient Education Patient Instructions Indication:Non-smoker Start:30-May-2020 Instruction Type:Provider Instructions for Treatment Name Dates Details How to access health informa tion online Indication:Non-smoker Start:04-Jun-2020 Instruction Type:Patient Education How to access health informa tion online - Detail Indication:Non-smoker Start:04-Jun-2020 Instruction Type:Patient Education Patient Instructions Indication:Non-smoker Start:04-Jun-2020 Instruction Type:Provider Instructions for Treatment How to access health informa tion online Indication:Non-smoker Start:30-May-2020 Instruction Type:Patient Education How to access health informa tion online - Detail Indication:Non-smoker Start:30-May-2020 Instruction Type:Patient Education Patient Instructions Indication:Non-smoker Start:30-May-2020 Instruction Type:Provider Instructions for Treatment Name Dates Details How to access health informa tion online Indication:Non-smoker Start:04-Jun-2020 Instruction Type:Patient Education How to access health informa tion online - Detail Indication:Non-smoker Start:04-Jun-2020 Instruction Type:Patient Education Patient Instructions Indication:Non-smoker Start:04-Jun-2020 Instruction Type:Provider Instructions for Treatment How to access health informa tion online Indication:Non-smoker Start:30-May-2020 Instruction Type:Patient Education How to access health informa tion online - Detail Indication:Non-smoker Start:30-May-2020 Instruction Type:Patient Education Patient Instructions Indication:Non-smoker Start:30-May-2020 Instruction Type:Provider Instructions for Treatment Name Dates Details How to access health informa tion online Indication:Non-smoker Start:04-Jun-2020 Instruction Type:Patient Education How to access health informa tion online - Detail Indication:Non-smoker Start:04-Jun-2020 Instruction Type:Patient Education Patient Instructions Indication:Non-smoker Start:04-Jun-2020 Instruction Type:Provider Instructions for Treatment How to access health informa tion online Indication:Non-smoker Start:30-May-2020 Instruction Type:Patient Education How to access health informa tion online - Detail Indication:Non-smoker Start:30-May-2020 Instruction Type:Patient Education Patient Instructions Indication:Non-smoker Start:30-May-2020 Instruction Type:Provider Instructions for Treatment Name Dates Details How to access health informa tion online Indication:Non-smoker Start:04-Jun-2020 Instruction Type:Patient Education How to access health informa tion online - Detail Indication:Non-smoker Start:04-Jun-2020 Instruction Type:Patient Education Patient Instructions Indication:Non-smoker Start:04-Jun-2020 Instruction Type:Provider Instructions for Treatment How to access health informa tion online Indication:Non-smoker Start:30-May-2020 Instruction Type:Patient Education How to access health informa tion online - Detail Indication:Non-smoker Start:30-May-2020 Instruction Type:Patient Education Patient Instructions Indication:Non-smoker Start:30-May-2020 Instruction Type:Provider Instructions for Treatment Name Dates Details Patient Instructions Indication:Non-smoker Start:19-Aug-2020 Instruction Type:Provider Instructions for Treatment How to Access Health Informa tion Online using Patient Portal and Email Data Source [employer] Indication:Non-smoker Start:19-Aug-2020 Instruction Type:Patient Education How to access health informa tion online Indication:Non-smoker Start:04-Jun-2020 Instruction Type:Patient Education How to access health informa tion online - Detail Indication:Non-smoker Start:04-Jun-2020 Instruction Type:Patient Education Patient Instructions Indication:Non-smoker Start:04-Jun-2020 Instruction Type:Provider Instructions for Treatment How to access health informa tion online Indication:Non-smoker Start:30-May-2020 Instruction Type:Patient Education How to access health informa tion online - Detail Indication:Non-smoker Start:30-May-2020 Instruction Type:Patient Education Patient Instructions Indication:Non-smoker Start:30-May-2020 Instruction Type:Provider Instructions for Treatment Name Dates Details Patient Instructions Indication:Non-smoker Start:19-Aug-2020 Instruction Type:Provider Instructions for Treatment How to Access Health Informa tion Online using Patient Portal and [employer] Apps Indication:Non-smoker Start:19-Aug-2020 Instruction Type:Patient Education How to access health informa tion online Indication:Non-smoker Start:04-Jun-2020 Instruction Type:Patient Education How to access health informa tion online - Detail Indication:Non-smoker Start:04-Jun-2020 Instruction Type:Patient Education Patient Instructions Indication:Non-smoker Start:04-Jun-2020 Instruction Type:Provider Instructions for Treatment How to access health informa tion online Indication:Non-smoker Start:30-May-2020 Instruction Type:Patient Education How to access health informa tion online - Detail Indication:Non-smoker Start:30-May-2020 Instruction Type:Patient Education Patient Instructions Indication:Non-smoker Start:30-May-2020 Instruction Type:Provider Instructions for Treatment Name Dates Details How to access health informa tion online Indication:Non-smoker Start:30-May-2020 Instruction Type:Patient Education How to access health informa tion online - Detail Indication:Non-smoker Start:30-May-2020 Instruction Type:Patient Education Patient Instructions Indication:Non-smoker Start:30-May-2020 Instruction Type:Provider Instructions for Treatment Name Dates Details How to access health informa tion online Indication:Non-smoker Start:04-Jun-2020 Instruction Type:Patient Education How to access health informa tion online - Detail Indication:Non-smoker Start:04-Jun-2020 Instruction Type:Patient Education Patient Instructions Indication:Non-smoker Start:04-Jun-2020 Instruction Type:Provider Instructions for Treatment How to access health informa tion online Indication:Non-smoker Start:30-May-2020 Instruction Type:Patient Education How to access health informa tion online - Detail Indication:Non-smoker Start:30-May-2020 Instruction Type:Patient Education Patient Instructions Indication:Non-smoker Start:30-May-2020 Instruction Type:Provider Instructions for Treatment Name Dates Details Patient Instructions Indication:Non-smoker Start:19-Aug-2020 Instruction Type:Provider Instructions for Treatment How to Access Health Informa tion Online using Patient Portal and [employer] Apps Indication:Non-smoker Start:19-Aug-2020 Instruction Type:Patient Education How to access health informa tion online Indication:Non-smoker Start:04-Jun-2020 Instruction Type:Patient Education How to access health informa tion online - Detail Indication:Non-smoker Start:04-Jun-2020 Instruction Type:Patient Education Patient Instructions Indication:Non-smoker Start:04-Jun-2020 Instruction Type:Provider Instructions for Treatment How to access health informa tion online Indication:Non-smoker Start:30-May-2020 Instruction Type:Patient Education How to access health informa tion online - Detail Indication:Non-smoker Start:30-May-2020 Instruction Type:Patient Education Patient Instructions Indication:Non-smoker Start:30-May-2020 Instruction Type:Provider Instructions for Treatment Summary Purpose Family History No Family History Records FoundNo Family History Records FoundNo Family History Records FoundNo Family History Records Found Advance Directives No Advanced Directives Records FoundNo Advanced Directives Records FoundNo Advanced Directives Records FoundNo Advanced Directives Records Found Additional Source Comments INFORMATION SOURCE (unrecogn ized section and content) DATE [facility] AUTHOR'S ORGANIZ ATION [facility]/2024 [facility] DATE CREATED AUTHOR AUTHOR'S ORGANIZ ATION 08/20/2024 [facility] DATE CREATED AUTHOR AUTHOR'S ORGANIZ ATION 08/21/2024 [facility] FOR RECORDS PERTAINING TO PATIENTS WHO ARE OR HAVE BEEN ENROLLED IN A CHEMICAL DEPENDENCY/SUBSTANCEABUSE PROGRAM, SOME INFORMATION MAY BE OMITTED. This clinical summary was aggregated from multiple sources. Caution should be exercised in using it in the provision of clinical care. This summary normalizes information from multiple sources, and as a consequence, information in this document may materially change the coding, format and clinical context of patient data. In addition, data may be omitted in some cases. CLINICAL DECISIONS SHOULD BE BASED ON THE PRIMARY CLINICAL RECORDS. [facility] [employer] provides no warranty or guarantee of the accuracy or completeness of information in this document.
== END | disposition home or self-care (01) ==
LOC: CVS 10:47
PROVIDERS: PCP Internal Medicine; Referring Provider Internal Medicine; Visit Provider Internal Medicine
DX: O22.30 Deep phlebothrombosis in pregnancy, unspecified trimester (principal); I80.03 Phlebitis and thrombophlebitis of superficial vessels of lower extremities, bilateral; Z3A.00 Weeks of gestation of pregnancy not specified
CPT/HCPCS: 93970